=== PATIENT | female | born 1945 | race Caucasian/White ===

== ENCOUNTER 2016-07-25 12:42 | Inpatient (IN) | payer MEDICARE ==
[~2016-07-25] VITALS: Ht 157.5 cm; Wt 100.0 kg
[2016-07-25] VITALS (8 sets, daily range): BP systolic 104–129; BP diastolic 47–67; PULSE 98–114; RESP 16–24; O2SAT 89–99
[~2016-07-25 12:42] MED LIST: ALPRAZOLAM0.5 MG PO; AMOX500C2 PO; BIMA2.5D5 OU; CALCIUM; DICY10CA9 PO; DULO60CA42 PO; ESTR2TAB5 PO; HYDR-4003 PO; IPRA4AER IH; LEVO750T9 PO; LISI20TA PO; MTP50TCR PO; MULTIVITAMIN; OMPR20CCR PO; OXYGEN; PRO-AIR INH; RIVA20TA PO; SYMINH PO; TRAZ-146 PO; TUMS PO; VICODIN PO; [UNRECOGNIZED DRUG - CODE] PO; vit D3 PO
--- NOTE | 2016-07-25 13:00 | ED.REPORT ---
HPI-General Illness Date of Service July 25, 2016 ED Provider: Jac Oconnor MD The patient is a 71 year old female w/ a hx of HTN and COPD who presents to the ED accompanied by her due to dysuria onset 2 days ago. Associated symptoms include weakness, increased urinary frequency, fever, flank pain and back pain. She does not have any hx of kidney stones. She denies nausea, vomiting, diarrhea, and constipation. Nursing Notes Stated Complaint: FLANK PAIN Chief Complaint: Back Pain or Injury Nursing Notes Reviewed: Yes Allergies: Coded Allergies: clarithromycin (Verified Allergy, Severe, HIVES, 07/25/16) ceftriaxone (Verified Allergy, Intermediate, Rash, itching, hot flash, 07/25) codeine (Verified Adverse Reaction, Intermediate, Hallucinations, 07/25/16) makes patient confused oxycodone (Verified Adverse Reaction, Intermediate, CONFUSION, 07/25/16) prednisone (Verified Adverse Reaction, Intermediate, States is can cause a -fib, 07/25/16) Received doses on last admit Scheduled ([Vitamin D3 gummies]) 2 EACH PO QAM ([Vitamin C gummies]) 2 EACH PO QAM ([MV gummies]) 2 EACH PO QAM Bimatoprost (Lumigan) 45 Drop/2.5 Ml Ophsoln 1 DROP BOTH_EYES HS Bisoprolol Fumarate (Bisoprolol Fumarate) 5 Mg Tablet 2.5 MG PO QPM Budesonide/Formoterol 160-4.5 mcg Inh (Symbicort 160-4.5 mcg Inh) 120 Puff Inhaler 2 PUFFS INHALATION BID Dicyclomine (Dicyclomine) 10 Mg Capsule 10 MG PO QPM Duloxetine (Duloxetine) 60 Mg Capsule.dr 60 MG PO QPM Estradiol (Estradiol) 1 Mg Tablet 1 MG PO QAM Flecainide Acetate (Flecainide Acetate) 50 Mg Tablet 50 MG PO BID Hydrochlorothiazide (Hydrochlorothiazide) 12.5 Mg Capsule 12.5 MG PO QAM Omeprazole (Omeprazole) 40 Mg Capsule.dr 40 MG PO QAM Ranitidine (Ranitidine) 300 Mg Tablet 300 MG PO QPM Rivaroxaban (Xarelto) 20 Mg Tablet 20 MG PO QPM Timolol (Betimol) 5 Ml Drops 1 DROP RIGHT_EYE QAM Trazodone (Trazodone) 100 Mg Tablet 100 MG PO HS l Acidophil/B Lactis/B Longum (Florajen3 Capsule) 460 Mg Capsule 460 MG PO QAM Scheduled PRN Albuterol HFA (Proair HFA) 8.5 Gm Hfa.aer.ad 2 PUFFS INHALATION Q4H PRN PRN For Shortness of Breath Alprazolam (Alprazolam) 0.5 Mg Tablet 0.5 MG PO TID PRN PRN anx Hydrocodone-Acetaminophen 7.5-325 mg (Hydrocodone-Acetaminophen 7.5-325 mg) 1 Each Tablet 1 EACH PO QID PRN PRN For Pain Ipratropium/Albuterol Sulfate (Iprat-Albut 0.5-3(2.5) mg/3 mL Inhalant Soln) 3 Ml Ampul.neb 3 ML INHALATION QID PRN PRN For Shortness of Breath General Time Seen by MD: 12:56 Chief Complaint Other (dysuria) Hx Obtained From: Patient Arrived By: Walk-in Sudden in Onset?: Yes Onset Occurred: 2 days ago Symptom Duration: Since onset Recent Healthcare: No recent doctor visit, No recent hospitalization Similar Sx Previous: No Past Medical History Past Medical History 1. Severe COPD, requiring nocturnal O2. 2. Prior admissions for sepsis associated with community-acquired pneumonia (most recently January 11, 2013). 3. Hypertension. 4. Dyslipidemia. 5. Gastroesophageal reflux disease. 6. Irritable bowel syndrome. 7. Glaucoma. 8. Anxiety and depression. 9. Iron deficiency anemia. TSI 10, TIBC 322, 3% saturation, ferritin 65, B12 1469 (03/13/2013). Venofer 300 mg IV was given on 03/14/2013 and on 03/16/2013. The patient will need outpatient colonoscopy, and referral was make to Dr. Thompson for colonoscopy in the future 10. Atrial flutter with fast ventricular response. ECG (03/15/2013) confirmed atrial flutter with variable block. Several doses of Cardizem IV push were given; the patient continued to go in and out of atrial flutter. This resolved after initiation of Toprol XL 50 mg daily given at noon. Echocardiogram (03/16/2013) showed LVEF 65-70% without segmental wall motion. CHADS2 score is 1; no systemic anticoagulation initiated this admission. 11. History of acute renal failure possible secondary to acute interstitial nephritis that required short term dialysis Past Surgical History Reports: Knee replacement Smoking History Former Smoker Social History Other Social History: Good social support, , Local resident Ambulatory Status Independent Review of Systems Full Review of Systems Constitutional: Reports: Fever GI: Denies: Constipation, Diarrhea, Nausea, Vomiting Female: Reports: Dysuria, Urinary frequency Musculoskeletal: Reports: Back pain Complete sys rev & neg: except as marked. Physical Exam Vital Signs Vital Signs Date Time Temp Pulse Resp B/P Pulse Ox O2 Delivery O2 Flow Rate FiO2 07/25/16 13:53 110 24 104/50 95 Room Air 1.5 07/25/16 12:43 37.3 99 23 117/50 89 Room Air Initial VS: Reviewed Head / Eyes: Atraumatic, Normocephalic ENT: Mucous membranes moist Respiratory: Breath sounds normal, Clear to auscultation Back: No CVA tenderness Extremities: Vascular intact, Neuro intact, No swelling Neurologic: Alert Abdomen: No guarding, No rebound mild mid-abdominal tenderness Interpretation & Diagnostics Lab Results Interpretation Result Diagram: 07/26/16 0240 07/26/16 0240 Test 07/25/16 12:50 07/25/16 13:00 07/25/16 13:20 Hold Purple Top Tube Received (Received) Hold Blue Top Tube Received (Received) Phosphorus Level 3.2mg/dL (2.5-4.9) Magnesium Level 1.6mg/dL (1.6-2.6) Total Bilirubin 0.3mg/dL (0.0-1.2) Aspartate Amino Transf (AST/SGOT) 16U/L (0-50) Alanine Aminotransferase (ALT/SGPT) 9U/L (0-32) Alkaline Phosphatase 88U/L (25-165) Troponin T < 0.010ug/L (0.0-0.011) Total Protein 7.6g/dL (6.4-8.4) Albumin 3.9g/dL (3.4-5.0) Lipase 18U/L (13-60) Hold [place] Top Tube Received (Received) Hold Ortiz Top Tube Received (Received) Hold Urine Received (Received) Urine Color Straw (YELLOW) Urine Appearance Cloudy (CLEAR,HAZY) Urine pH 6.5 (5.0-8.0) Urine Specific Brandon 1.010 (1.003-1.035) Urine Protein 100mg/dL (NEG,TRACE) Urine Glucose (UA) Negativemg/dL (NEGATIVE) Urine Ketones Negativemg/dL (NEGATIVE) Urine Occult Blood Large (NEGATIVE) Urine Nitrite Negative (NEGATIVE) Urine Bilirubin Negative (NEGATIVE) Urine Urobilinogen Normalmg/dL (NORMAL) Urine Leukocyte Esterase Large (NEGATIVE) Urine RBC 11-50/hpf (0-2) Urine WBC >50/hpf (0-5) Urine Epithelial Cells Occasional/hpf (NONE-MOD) Urine Crystals None seen (NONE SEEN) Urine Bacteria Moderate/hpf (NONE-FEW) Urine Hyaline Casts None/lpf (NONE) Urine Granular Casts None seen (NONE SEEN) Urine Waxy Casts None seen (NONE SEEN) Urine Red Blood Cell Casts None seen (NONE SEEN) Urine White Blood Cell Casts None seen (NONE SEEN) Urine Mucus None seen (None Seen) Urine Trichomonas None seen (NONE SEEN) Urine Yeast None (NONE SEEN) Urinalysis Comment None Urine Culture Reflexed Indicated ECG Interpretation Time: 13:41 Interpreted by: ED physician Rhythm / Conduction: Tachycardia (rate 102) ECG Interpretation: wide QRS tachycardia (rate 165) Time: 14:44 Interpreted by: ED physician ECG Interpretation: A-flutter 2 to 1 block rate 107 Time: 15:05 Interpreted by: ED physician Re-Eval/Medical Decision Med Decision/Clinical Course 71-year-old female history of COPD, paroxysmal atrial fibrillation presenting with dysuria and fevers for several days. Tachycardic sinus tachycardia 110s on arrival initially with low blood pressures maps 50s. Lactate is 3. White blood cell count is 18,000. Apparent urinary source. Patient admitted for urinary sepsis given Zosyn. As awaiting transfer to floor, patient with wide complex tachyarrhythmia asymptomatic. Atrial fibrillation with RVR. Confirmed with cardiology. Per cardiology request given adenosine 6 mg with recurrent heart rate in the low 100s with EKG showing atrial flutter. Patient stable at time of transfer to floor. Time of Eval: 14:15 Re-Evaluation/Progress Note: Pt rechecked. Informed of lab results, diagnosis of pylonephritis and sepsis, and need for admission. Pt understands and agrees with plan. All questions addressed. Time of Eval: 15:04 Re-Evaluation/Progress Note: Pt rechecked. A-fib with aberrency RVR. Pt is given 6mm adenosine per cardiology request. Heart rate slowed down to atrial fibrillation. Counseled Regarding: Diagnosis, Lab results, Need for admission Discharge & Departure Primary Impression: Pyelonephritis Additional Impressions: Sepsis Sepsis type: sepsis due to unspecified organism Qualified Code: A41.9 - Sepsis, unspecified organism Atrial fibrillation with RVR Disposition: ADMITTED TO HOSPITAL Discharge Condition All VS Reviewed: Yes Condition: Stable Referrals: [facility] Crit Care Except Billable Proc Time Spent: 30-74 minutes (60 minutes) Services Performed: Patient management by me, Time spent at bedside, Reviewing test results, Reviewing imaging, Discussing patient care, Documentation in record, Time with fam/surrogate Scribe Attestation Portion of this note were transcribed by Nena Gallegos. I, Dr. Oconnor, personally performed the history, physical exam, and medical decision-making: I reviewed and confirmed the accuracy for the information in the transcribed note. Signed by: bayron Culver, 07/25/16 1500 copies to: [facility] Jac Oconnor MD July 25, 2016 13:00 Nena Gallegos July 25, 2016 13:16 None seen (NONE SEEN) Urine Red Blood Cell Casts None seen (NONE SEEN) Urine White Blood Cell Casts None seen (NONE SEEN) Urine Mucus None seen (None Seen) Urine Trichomonas None seen (NONE SEEN) Urine Yeast None (NONE SEEN) Urinalysis Comment None Urine Culture Reflexed Indicated ECG Interpretation Time: 13:41 Interpreted by: ED physician Rhythm / Conduction: Tachycardia (rate 102) ECG Interpretation: wide QRS tachycardia (rate 165) Time: 14:44 Interpreted by: ED physician ECG Interpretation: A-flutter 2 to 1 block rate 107 Time: 15:05 Interpreted by: ED physician Re-Eval/Medical Decision Med Decision/Clinical Course 71-year-old female history of COPD, paroxysmal atrial fibrillation presenting with dysuria and fevers for several days. Tachycardic sinus tachycardia 110s on arrival initially with low blood pressures maps 50s. Lactate is 3. White blood cell count is 18,000. Apparent urinary source. Patient admitted for urinary sepsis given Zosyn. As awaiting transfer to floor, patient with wide complex tachyarrhythmia asymptomatic. Atrial fibrillation with RVR. Confirmed with cardiology. Per cardiology request given adenosine 6 mg with recurrent heart rate in the low 100s with EKG showing atrial flutter. Time of Eval: 14:15 Re-Evaluation/Progress Note: Pt rechecked. Informed of lab results, diagnosis of pylonephritis and sepsis, and need for admission. Pt understands and agrees with plan. All questions addressed. Time of Eval: 15:04 Re-Evaluation/Progress Note: Pt rechecked. A-fib with aberrency RVR. Pt is given 6mm adenosine per cardiology request. Heart rate slowed down to atrial fibrillation. Counseled Regarding: Diagnosis, Lab results, Need for admission Discharge & Departure Primary Impression: Pyelonephritis Additional Impressions: Sepsis Sepsis type: sepsis due to unspecified organism Qualified Code: A41.9 - Sepsis, unspecified organism Atrial fibrillation with RVR Disposition: ADMITTED TO HOSPITAL Discharge Condition All VS Reviewed: Yes Condition: Stable Referrals: [facility] Crit Care Except Billable Proc Time Spent: 30-74 minutes (60 minutes) Services Performed: Patient management by me, Time spent at bedside, Reviewing test results, Reviewing imaging, Discussing patient care, Documentation in record, Time with fam/surrogate Scribe Attestation Portion of this note were transcribed by Nena Gallegos. I, Dr. Oconnor, personally performed the history, physical exam, and medical decision-making: I reviewed and confirmed the accuracy for the information in the transcribed note. Signed by: bayron Culver, 07/25/16 1500 copies to: [facility] Jac Oconnor MD July 25, 2016 13:00 Nena Gallegos July 25, 2016 13:16
[2016-07-25] MEDS ORDERED: 0.9% Sodium Chloride 500 ML IV ONE (13:15)
[2016-07-25] MEDS ORDERED: Ondansetron 2 mg/mL 2 mL Inj IVPUSH PRN ×3 (13:15→14:15)
[2016-07-25 13:25] LABS: NEUTROPHILS % (AUTO) 94.4 % (40-74); Platelet Count 368 bil/L (150-400)
[2016-07-25 13:28] LABS: BASOPHILS % (AUTO) 0.2 % (0-3); EOSINOPHILS % (AUTO) 0.5 % (0-5); MONOCYTES % (AUTO) 2.8 % (4-12); Mean Corpuscular Hemoglobin 21.6 pg (27.0-35.0)
[2016-07-25 13:40] LABS: APPEARANCE,URINE CLOUDY (CLEAR,HAZY); COLOR,URINE STRAW (YELLOW)
[2016-07-25 13:41] LABS: OCCULT BLOOD,URINE LARGE (NEGATIVE); PH,URINE 6.5 (5.0-8.0); UROBILINOGEN,URINE NORMAL (NORMAL)
[2016-07-25 13:47] LABS: Magnesium 1.5 mg/dL (1.6-2.6)
[2016-07-25] MEDS ORDERED: Piperacillin-Tazo 3.375 Gm Inj 3.375 GM in Dextrose 5% Minibag Plus 50 ML IV ONE (14:00)
[2016-07-25] MEDS ORDERED: 0.9% Sodium Chloride 1,000 ML IV SCH (14:11)
[2016-07-25] MEDS ORDERED: Alum-Mag Hydrox-Simeth 30 mL Suspension PO PRN ×2 (14:15)
[2016-07-25] MEDS ORDERED: Polyethylene Glycol (PEG) 17 Gm Powder PO PRN (14:15)
[2016-07-25] MEDS ORDERED: RIVA20TA PO (14:22)
[2016-07-25] MEDS ORDERED: ESTR1TAB24 PO (14:22)
[2016-07-25] MEDS ORDERED: SYMINH INHALATION (14:22)
[2016-07-25] MEDS ORDERED: TIMO5DRO26 RIGHT_EYE (14:22)
[2016-07-25] MEDS ORDERED: HYDR12.5 PO (14:22)
[2016-07-25] MEDS ORDERED: IPRA3AMP INHALATION (14:22)
[2016-07-25] MEDS ORDERED: FLC50T PO (14:22)
[2016-07-25] MEDS ORDERED: OMEP40CA36 PO (14:22)
[2016-07-25] MEDS ORDERED: HYDR-3825 PO (14:22)
[2016-07-25] MEDS ORDERED: ALBU8.5H2 INHALATION (14:22)
[2016-07-25] MEDS ORDERED: BISO5TAB2 PO (14:22)
[2016-07-25] MEDS ORDERED: L AC460C PO (14:22)
[2016-07-25] MEDS ORDERED: BIMA2.5D5 BOTH_EYES (14:22)
[2016-07-25] MEDS ORDERED: DULO60CA61 PO (14:22)
[2016-07-25] MEDS ORDERED: TRAZ-118 PO (14:22)
[2016-07-25] MEDS ORDERED: RANI300T4 PO (14:22)
[2016-07-25] MEDS ORDERED: ALPR0.5T8 PO (14:22)
[2016-07-25] MEDS ORDERED: DICY10CA13 PO (14:22)
[2016-07-25] MEDS ORDERED: VITAMIN C GUMMIES PO (14:29)
[2016-07-25] MEDS ORDERED: VITAMIN D GUMMIES PO (14:29)
[2016-07-25] MEDS ORDERED: MULTIVITAMIN PO (14:29)
[2016-07-25] MEDS ORDERED: Adenosine 3 mg/mL 2 mL Inj ONE (14:53)
[2016-07-25 14:55] LABS: Magnesium 1.6 mg/dL (1.6-2.6); Phosphorus 3.2 mg/dL (2.5-4.9); TROPONIN T < 0.010 ug/L (0.0-0.011)
[2016-07-25] MEDS ORDERED: 0.9% Sodium Chloride 1,000 ML IV ONE (16:40)
--- NOTE | 2016-07-25 17:06 | PCM.HPMED ---
Subjective Date of Service July 25, 2016 Primary Provider: Admitting Physician: Kelby Jacobo MD Primary Care Physician: Other,Physician Attending Physician: Kelby Jcaobo MD Chief Complaint: Pain with urination History of Present Illness: Ashley Cruz is a 71 year old woman with past medical history of hypertension, COPD, A fib on Xarelto, anxiety and depression who presented to the [facility] ED via EMS due to severe dysuria for one week. The patient noticed that she had issues with urination but it the suprapubic pain become even more severe today to a 10/ 10. She also noted back pain as well on the right. She denies any fevers but did note chills today as well as weakness. She states her urine looked "murky" and had some blood in it at first. She denies any kidney stones. She denies any nausea, vomiting, diarrhea, or constipation. She denies any LOC. While in the ED the patient's rhythm converted from atrial fibrillation to atrial fibrillation with aberrancy. Cardiology was contacted and recommended cardioversion with adenosine. This was done successfully and brought the patient back into atrial fibrillation. The patient was asymptomatic during this time and had stable blood pressure. She was given 1 L of NS in the ED and given one dose of Zosyn. Review of Systems: A comprehensive review of systems was conducted with the patient and found to be negative except as above in the History of Present Illness. Allergies Coded Allergies: clarithromycin (Verified Allergy, Severe, HIVES, 07/25/16) ceftriaxone (Verified Allergy, Intermediate, Rash, itching, hot flash, 07/25) codeine (Verified Adverse Reaction, Intermediate, Hallucinations, 07/25/16) makes patient confused oxycodone (Verified Adverse Reaction, Intermediate, CONFUSION, 07/25/16) prednisone (Verified Adverse Reaction, Intermediate, States is can cause a -fib, 07/25/16) Received doses on last admit Home Medications ([Vitamin D3 gummies]) 2 EACH PO QAM ([Vitamin C gummies]) 2 EACH PO QAM ([MV gummies]) 2 EACH PO QAM Bimatoprost (Lumigan) 45 Drop/2.5 Ml Ophsoln 1 DROP BOTH_EYES HS Bisoprolol Fumarate (Bisoprolol Fumarate) 5 Mg Tablet 2.5 MG PO QPM Budesonide/Formoterol 160-4.5 mcg Inh (Symbicort 160-4.5 mcg Inh) 120 Puff Inhaler 2 PUFFS INHALATION BID Dicyclomine (Dicyclomine) 10 Mg Capsule 10 MG PO QPM Duloxetine (Duloxetine) 60 Mg Capsule.dr 60 MG PO QPM Estradiol (Estradiol) 1 Mg Tablet 1 MG PO QAM Flecainide Acetate (Flecainide Acetate) 50 Mg Tablet 50 MG PO BID Hydrochlorothiazide (Hydrochlorothiazide) 12.5 Mg Capsule 12.5 MG PO QAM Omeprazole (Omeprazole) 40 Mg Capsule.dr 40 MG PO QAM Ranitidine (Ranitidine) 300 Mg Tablet 300 MG PO QPM Rivaroxaban (Xarelto) 20 Mg Tablet 20 MG PO QPM Timolol (Betimol) 5 Ml Drops 1 DROP RIGHT_EYE QAM Trazodone (Trazodone) 100 Mg Tablet 100 MG PO HS l Acidophil/B Lactis/B Longum (Florajen3 Capsule) 460 Mg Capsule 460 MG PO QAM Scheduled PRN Albuterol HFA (Proair HFA) 8.5 Gm Hfa.aer.ad 2 PUFFS INHALATION Q4H PRN PRN For Shortness of Breath Alprazolam (Alprazolam) 0.5 Mg Tablet 0.5 MG PO TID PRN PRN anx Hydrocodone-Acetaminophen 7.5-325 mg (Hydrocodone-Acetaminophen 7.5-325 mg) 1 Each Tablet 1 EACH PO QID PRN PRN For Pain Ipratropium/Albuterol Sulfate (Iprat-Albut 0.5-3(2.5) mg/3 mL Inhalant Soln) 3 Ml Ampul.neb 3 ML INHALATION QID PRN PRN For Shortness of Breath PMH 1. Severe COPD, requiring nocturnal O2. 2. Prior admissions for sepsis associated with community-acquired pneumonia ( most recently January 11, 2013). 3. Hypertension. 4. Dyslipidemia. 5. Gastroesophageal reflux disease. 6. Irritable bowel syndrome. 7. Glaucoma. 8. Anxiety and depression. 9. Iron deficiency anemia. 10. Atrial flutter with fast ventricular response status post ablation. 11. History of acute renal failure possible secondary to acute interstitial nephritis that required short term dialysis Surgical History Knee replacement Family History No family history of kidney stones. Social History Hx Alcohol Use: No Hx Substance Use: No Hx Tobacco Use: Yes (smoked since teenager but quit 2002) Smoking Status: Former Smoker Exam Vital Signs Vital Sign - Last Date Time Temp Pulse Resp B/P Pulse Ox O2 Delivery O2 Flow Rate FiO2 07/25/16 13:53 110 24 104/50 95 Room Air 1.5 07/25/16 12:43 37.3 Exam General: No acute distress, well-developed, well-nourished, appropriately interactive HEENT: Normocephalic, atraumatic. External ears without defect. Pupils equal, round, and reactive to light and accommodation. Anicteric sclerae, moist conjunctivae, and no lid lag. Oropharynx free of erythema and cobble stoning with moist mucosa. Neck: Supple with full range of motion. No jugular venous distension. No bruits. No lymphadenopathy or thyromegaly. Cardiovascular: Irregularly irregular with no murmurs, rubs, or gallops appreciated Pulmonary: Clear to auscultation bilaterally with no crackles, wheezes, or rhonchi. Normal respiratory effort with no use of accessory muscles. Abdomen: Bowel tones present. Soft, nontender, nondistended. No hepatosplenomegaly or masses appreciated. Obese. Extremities: No clubbing, cyanosis, edema, or lymphadenopathy appreciated. Skin: Normal temperature, turgor, and texture; no rash, ulcers, or subcutaneous nodules appreciated. Neurological: Cranial nerves grossly intact. Normal muscle strength, tone, and bulk. Reflexes, coordination, and sensory function within normal limits. No known gait impairment. Psychiatric: Somewhat anxious. Alert and oriented to person, place, and time. Lab and Diagnostics Result Diagram: 07/25/16 1250 07/25/16 1250 12-lead ECG Wide complex tachycardia, consistent with atrial tachycardia with aberrancy. Assessment & Plan Ashley Cruz is a 71 year old woman with past medical history of hypertension, COPD, A fib on Xarelto, anxiety and depression who presented to the [facility] ED via EMS due to severe dysuria for one week. Severe sepsis, secondary to pyelonephritis, evidenced by WBC 18.3, HR 110, with hyperlactatemia of 3.2 and procalcitonin of 0.86 -Trend lactate, already normalized. Give another L of NS over 4 hours. -Continue Zosyn Q8H Atrial fibrillation with RVR, transiently manifested as atrial tachycardia with aberrancy, s/p adenosine -Likely due to stress of sepsis -Continue home Flecainide, Bisoprolol and Xarelto -Cardizem PRN Anxiety and depression -Continue home medications, patient is very concerned about receiving these on time. COPD, without evidence of exacerbation -Continue home inhalers Chronic microcytic anemia -Continue to monitor Hypertension -Continue home medications Dyslipidemia -Continue home statin Gastroesophageal reflux disease -Continue home PPI Glaucoma -Continue home eye drops CODE STATUS: FULL CODE, although patient would not like to be intubated for a prolonged period of time. Patient is admitted under inpatient status with expected length of stay greater than 2 midnights due to severity of presenting symptoms, risk of adverse event, and complexity of treatment plan. Time spent 45 min Attending Statement Patient seen and examined with house staff. Agree with all attached documentation. Elena Contreras DO July 25, 2016 14:39 Kelby Jacobo MD July 26, 2016 14:23
[2016-07-25] MEDS: Pantoprazole 40 mg ER24 Tablet PO SCH (18:18)
[2016-07-25] MEDS: Sodium Chloride LOK Flush 10 mL Syringe IVFLUSH SCH (18:22)
--- NOTE | 2016-07-25 18:32 | NUR ---
Admit note Patient admitted to [facility] from [facility] ER via gurney. Patient a/o x 3, denies pain, nausea or sob. Patient amb in room with [facility]. Tele A fib 110-160's, patient asymptomatic. Lungs clear bilat. Patient oriented to call light, tv, phone, bathroom and poc.
[2016-07-25] MEDS ORDERED: Albuterol 2.5 mg/3 mL Inhalation Solution NEB PRN (20:00)
[2016-07-25] MEDS: DULoxetine 30 mg DR Capsule PO SCH (20:28)
[2016-07-25] MEDS: Fluticasone-Salmererol 250-50 Inhaler INHALATION SCH (20:54)
[2016-07-25] MEDS ORDERED: Mag Sulf 4 Gm/100 mL IV Premix (Mag < 1.6 & Creat < 2) IV ONE (23:30)
[2016-07-26] VITALS (10 sets, daily range): BP systolic 93–155; BP diastolic 52–66; PULSE 86–108; RESP 16–24; O2SAT 91–97
[2016-07-26] MEDS: Piperacillin-Tazo 3.375 Gm Inj 3.375 GM in Dextrose 5% Minibag Plus 50 ML IV SCH ×3 (00:23→17:02)
[2016-07-26] MEDS: Sodium Chloride LOK Flush 10 mL Syringe IVFLUSH SCH ×3 (00:30→16:30)
[2016-07-26] MEDS ORDERED: Piperacillin-Tazo 3.375 Gm Inj 3.375 GM in Dextrose 5% Minibag Plus 50 ML IV SCH (00:30)
[2016-07-26 02:56] LABS: BASOPHILS % (AUTO) 0.2 % (0-3); EOSINOPHILS % (AUTO) 0.6 % (0-5); MONOCYTES % (AUTO) 5.5 % (4-12); Mean Corpuscular Volume 77.7 fL (81-100); NEUTROPHILS % (AUTO) 85.2 % (40-74); Platelet Count 316 bil/L (150-400)
[2016-07-26] MEDS: Pantoprazole 40 mg ER24 Tablet PO SCH (05:38)
--- NOTE | 2016-07-26 05:56 | NUR ---
PAIN Pt c/o abdominal and back pain throughout the night. 2mg IV Morphine x3 and 650 mg Tylenol for pain. Pt ST in 100's, 1st degree block and PAC's. Pt on 2L NC for noc O2. No other issues noted at this time.
[2016-07-26] MEDS: Fluticasone-Salmererol 250-50 Inhaler INHALATION SCH ×2 (08:14→19:39)
[2016-07-26] MEDS: Timolol 0.5% 5 mL Ophthalmic Solution RIGHT_EYE SCH (08:16)
--- NOTE | 2016-07-26 08:31 | PCM.PNMED ---
Subjective Date of Service July 26, 2016 Subjective Ashley Cruz is a 71 year old woman with past medical history of hypertension, COPD, A fib on Xarelto, anxiety and depression who presented to the [facility] ED via EMS due to severe dysuria for one week. Now under treatment for sepsis and pyelonephritis. Hospital day #2. Overnight: No acute events. Today: The patient is feeling much better and would like to go home. She still has dysuria but it is has improved. She denies any nausea, vomiting, diarrhea, fevers, or chills. The remainder of ROS is negative except as noted above. Exam Vital Signs Vital Sign - Last Date Time Temp Pulse Resp B/P Pulse Ox O2 Delivery O2 Flow Rate FiO2 07/26/16 07:55 Supplement Oxygen 07/26/16 07:55 37.4 92 16 93/52 96 1.50 Intake and Output 07/25/16 07/25/16 07/26/16 Cumulative From/Thru 15:00 23:00 07:00 07/25/16 12:43 - 07/26/16 05:19 Intake Total 900 ml 1748 ml 2648 ml Output Total 1100 ml 1100 ml Balance 900 ml 648 ml 1548 ml Intake Oral 800 ml 800 ml IV Total 900 ml 948 ml 1848 ml Output Urine Total 1100 ml 1100 ml Exam General: No acute distress, well-developed, well-nourished, appropriately interactive HEENT: Normocephalic, atraumatic. External ears without defect. Pupils equal, round, and reactive to light and accommodation. Anicteric sclerae, moist conjunctivae, and no lid lag. Oropharynx free of erythema and cobble stoning with moist mucosa. Neck: Supple with full range of motion. No jugular venous distension. No bruits. No lymphadenopathy or thyromegaly. Cardiovascular: Irregularly irregular with no murmurs, rubs, or gallops appreciated Pulmonary: Clear to auscultation bilaterally with no crackles, wheezes, or rhonchi. Normal respiratory effort with no use of accessory muscles. Abdomen: Bowel tones present. Soft, nontender, nondistended. No hepatosplenomegaly or masses appreciated. Obese. Extremities: No clubbing, cyanosis, edema, or lymphadenopathy appreciated. Skin: Normal temperature, turgor, and texture; no rash, ulcers, or subcutaneous nodules appreciated. Neurological: Cranial nerves grossly intact. Normal muscle strength, tone, and bulk. Reflexes, coordination, and sensory function within normal limits. No known gait impairment. Psychiatric: Somewhat anxious. Alert and oriented to person, place, and time. IVs and Medications Medications Reviewed: Medications were reviewed in detail Lab and Diagnostics Result Diagram: 07/26/1623907/26/16239 12-lead ECG Wide complex tachycardia, consistent with atrial tachycardia with aberrancy. Assessment & Plan Ashley Cruz is a 71 year old woman with past medical history of hypertension, COPD, A fib on Xarelto, anxiety and depression who presented to the [facility] ED via EMS due to severe dysuria for one week. Now under treatment for sepsis and pyelonephritis. Hospital day #2. Severe sepsis, secondary to pyelonephritis, evidenced by WBC 18.3, HR 110, with hyperlactatemia of 3.2 and procalcitonin of 0.86 -Lactate normalized. Give 2 L total -Continue Zosyn Q8H -Procalcitonin worsened however the patient feels better clinically. Will continue with Zosyn for now, however if the patient changes course clinically will switch her to ertapenem. Atrial fibrillation with RVR, transiently manifested as atrial tachycardia with aberrancy, s/p adenosine, resolved. -Likely due to stress of sepsis -Continue home Flecainide, Bisoprolol and Xarelto -Cardizem PRN Anxiety and depression -Continue home medications, patient is very concerned about receiving these on time. COPD, without evidence of exacerbation -Continue home inhalers Chronic microcytic anemia -Continue to monitor Hypertension -Continue home medications Dyslipidemia -Continue home statin Gastroesophageal reflux disease -Continue home PPI Glaucoma -Continue home eye drops CODE STATUS: FULL CODE, although patient would not like to be intubated for a prolonged period of time. Dispo: Anticipate the patient will be in house for a few days. Attending Statement Patient seen and examined with house staff. Agree with all attached documentation. Elena Contreras DO July 26, 2016 08:31 Kelby Jacobo MD July 26, 2016 14:30
--- NOTE | 2016-07-26 09:24 | NUR ---
Social Work: Initial Assessment D: Per EMR review, pt is a 71 year old female admitted for pyelonephritis, sepsis. Pt is Medicare with [employer] supplement; pt has no LTC insurance or VA benefits. Pt does not have a PCP and declined a Residency Clinic Appointment from [facility]. NOK is Shadi Cruz, Spouse, . Advanced directives completed and on file. Readmit score is moderate, 4/8. [facility] met with pt at bedside. Sw role explained and contact info provided. See initial assessment. Pt lives in [facility] with her spouse in a single story home with 6 steps to enter. Pt uses no DME, continues to drive and is I with all ADLS. Pt has a history with [facility] but is not currently open for services. Pt has never had Skilled Rehab or Nursing. Pt states her spouse will transport her home when ready. Pt has been I during admission. A: Pt who is I at baseline. P: Anticipate pt to discharge home with no social work needs once medically stable; [facility] to continue to follow. LESLIE Covarrubias Addendum: 07/26/16 at 0927 by BARB MORALES Amended: Links added.
[2016-07-26] MEDS: ALPRAZolam 0.5 mg Tablet PO PRN (12:55)
[2016-07-26] MEDS: HYDROcodone-APAP 7.5-325 mg Tablet PO PRN ×2 (14:26→19:41)
--- NOTE | 2016-07-26 15:39 | NUR ---
pain/anxiety pt reported moderate anxiety prn xanax given moderate effectiveness. pt reported return of right flank pain and headache. pt requested MD be notified of pain return. prn norco given for pain. pt resting quietly upon follow up. will continue to monitor.
[2016-07-26] MEDS: DULoxetine 30 mg DR Capsule PO SCH (19:40)
[2016-07-26] MEDS: Diltiazem 5 mg/mL 5 mL Inj IVPUSH PRN ×2 (20:12→23:54)
--- NOTE | 2016-07-26 21:35 | NUR ---
HR/ANXIETY Pt's HR up in the 180's sustained with minimal exertion. Pt became lightheaded and anxious. Pt received PRN 5mg Cardizem IV push, HR currently steady in the 100's. Pt also received 1 tab [place] 7.5/325mg and 0.5mg Xanax for abd/back pain and anxiety. Addendum: 07/27/16 at 0019 by JAIRO MARTIN RN HR up in the 170's sustained again with minimal exertion, up from bed to standing position. Pt given 5 mg Cardizem IV push, HR steady high 90's. Addendum: 07/27/16 at 0506 by JAIRO MARTIN RN Anxiety Pt anxious this AM around 0430, received 0.5mg Xanax and discussed her concerns r/t her current ekaterina situation. Pt appeared more at ease after conversation and anxiety medication.
[2016-07-27] VITALS (8 sets, daily range): BP systolic 116–155; BP diastolic 53–68; PULSE 81–105; RESP 18–20; O2SAT 93–98
[2016-07-27] MEDS: Piperacillin-Tazo 3.375 Gm Inj 3.375 GM in Dextrose 5% Minibag Plus 50 ML IV SCH ×3 (00:24→15:49)
[2016-07-27] MEDS: Sodium Chloride LOK Flush 10 mL Syringe IVFLUSH SCH ×4 (00:24→21:33)
[2016-07-27] MEDS: ALPRAZolam 0.5 mg Tablet PO PRN ×2 (04:28→13:40)
[2016-07-27] MEDS: Pantoprazole 40 mg ER24 Tablet PO SCH (04:30)
[2016-07-27] MEDS: HYDROcodone-APAP 7.5-325 mg Tablet PO PRN ×2 (05:52→18:53)
[2016-07-27 08:05] LABS: BASOPHILS % (AUTO) 0.3 % (0-3); EOSINOPHILS % (AUTO) 1.8 % (0-5); MONOCYTES % (AUTO) 9.5 % (4-12); Mean Corpuscular Hemoglobin 22.1 pg (27.0-35.0); Mean Corpuscular Volume 77.9 fL (81-100); Platelet Count 272 bil/L (150-400)
[2016-07-27] MEDS: Albuterol-Ipratropium 3 mL Inhalation Solution INHALATION PRN (08:33)
[2016-07-27] MEDS: Timolol 0.5% 5 mL Ophthalmic Solution RIGHT_EYE SCH (08:34)
[2016-07-27] MEDS: Fluticasone-Salmererol 250-50 Inhaler INHALATION SCH ×2 (08:34→20:04)
--- NOTE | 2016-07-27 09:28 | PCM.PNMED ---
Subjective Date of Service July 27, 2016 Subjective Ashley Cruz is a 71 year old woman with past medical history of hypertension, COPD, A fib on Xarelto, anxiety and depression who presented to the [facility] ED via EMS due to severe dysuria for one week. Now under treatment for sepsis and pyelonephritis. Hospital day #3. Overnight: Patient had an episode of anxiety and had two episodes of A fib with RVR that were controlled with two PRN doses of IV diltiazem. Today: The patient states she is feeling well and states her dysuria has resolved completed. She still has some back pain but this has improved since yesterday. She denies any nausea, vomiting, diarrhea, fevers, or chills. The remainder of ROS is negative except as noted above. Exam Vital Signs Vital Sign - Last Date Time Temp Pulse Resp B/P Pulse Ox O2 Delivery O2 Flow Rate FiO2 07/27/16 08:19 Supplement Oxygen 07/27/16 08:11 36.8 95 20 136/63 94 2.00 Intake and Output 07/26/16 07/26/16 07/27/16 Cumulative From/Thru 15:00 23:00 07:00 07/25/16 12:43 - 07/27/16 05:54 Intake Total 503 ml 470 ml 3621 ml Output Total 1000 ml 2000 ml 4100 ml Balance -497 ml -1530 ml -479 ml Intake Oral 400 ml 400 ml 1600 ml IV Total 103 ml 70 ml 2021 ml Output Urine Total 1000 ml 2000 ml 4100 ml # Voids 3 3 # Bowel Movements 0 0 Exam General: No acute distress, well-developed, well-nourished, appropriately interactive HEENT: Normocephalic, atraumatic. External ears without defect. Pupils equal, round, and reactive to light and accommodation. Anicteric sclerae, moist conjunctivae, and no lid lag. Oropharynx free of erythema and cobble stoning with moist mucosa. Neck: Supple with full range of motion. No jugular venous distension. No bruits. No lymphadenopathy or thyromegaly. Cardiovascular: Irregularly irregular with no murmurs, rubs, or gallops appreciated Pulmonary: Clear to auscultation bilaterally with no crackles, wheezes, or rhonchi. Normal respiratory effort with no use of accessory muscles. Abdomen: Bowel tones present. Soft, nontender, nondistended. No hepatosplenomegaly or masses appreciated. Obese. Extremities: No clubbing, cyanosis, edema, or lymphadenopathy appreciated. Skin: Normal temperature, turgor, and texture; no rash, ulcers, or subcutaneous nodules appreciated. Neurological: Cranial nerves grossly intact. Normal muscle strength, tone, and bulk. Reflexes, coordination, and sensory function within normal limits. No known gait impairment. Psychiatric: Normal mood and affect. Pleasant. Alert and oriented to person, place, and time. IVs and Medications Medications Reviewed: Medications were reviewed in detail Lab and Diagnostics Result Diagram: 07/27/1674407/27/16744 12-lead ECG Wide complex tachycardia, consistent with atrial tachycardia with aberrancy. Assessment & Plan Ashley Cruz is a 71 year old woman with past medical history of hypertension, COPD, A fib on Xarelto, anxiety and depression who presented to the [facility] ED via EMS due to severe dysuria for one week. Now under treatment for sepsis and pyelonephritis. Hospital day #3. Pyelonephritis -Micro showing E. Coli, sensitivities to follow -Will continue Zosyn for now, likely transition to PO antibiotics tomorrow and D /C home. Severe sepsis, secondary to pyelonephritis, evidenced by WBC 18.3, HR 110, with hyperlactatemia of 3.2 and procalcitonin of 0.86. Resolved. -Lactate normalized. Give 2 L total -Continue Zosyn Q8H -Procalcitonin worsened however the patient feels better clinically. Atrial fibrillation with RVR, transiently manifested as atrial tachycardia with aberrancy, s/p adenosine, resolved. -Likely due to stress of sepsis -Continue home Flecainide, Bisoprolol and Xarelto -Cardizem PRN Anxiety and depression -Continue home medications, patient is very concerned about receiving these on time. COPD, without evidence of exacerbation -Continue home inhalers Chronic microcytic anemia -Continue to monitor Hypertension -Continue home medications Dyslipidemia -Continue home statin Gastroesophageal reflux disease -Continue home PPI Glaucoma -Continue home eye drops CODE STATUS: FULL CODE, although patient would not like to be intubated for a prolonged period of time. Dispo: Anticipate D/C home tomorrow. Attending Statement Patient seen and examined with house staff. Agree with all attached documentation. Elena Contreras DO July 27, 2016 09:17 Kelby Jacobo MD July 31, 2016 09:04
--- NOTE | 2016-07-27 15:33 | NUR ---
HR/Anxiety/Resp pt reported increased anxiety this afternoon, pt anxious and concerned about temporary dental work dislodging. PRN xanax given per md order with mild to moderate effectiveness. pt encouraged to phone dentist for instructions. pt stated appointment with dentist after discharge from hospital. Pt encourage to order soft foods. noted increase SOB upon returning to bed after walking to bathroom. Pt with 2L o2, sating hi80s, recovered to mid 90s after a few minutes. pt hr increasing to low 100s with walking. will continue to monitor.
[2016-07-27] MEDS: DULoxetine 30 mg DR Capsule PO SCH (20:01)
[2016-07-27] MEDS: Diltiazem 5 mg/mL 5 mL Inj IVPUSH PRN (20:05)
[2016-07-28] VITALS (11 sets, daily range): BP systolic 118–130; BP diastolic 63–76; PULSE 67–115; RESP 18–24; O2SAT 92–100
[2016-07-28] MEDS: Piperacillin-Tazo 3.375 Gm Inj 3.375 GM in Dextrose 5% Minibag Plus 50 ML IV SCH ×3 (01:21→16:33)
[2016-07-28] MEDS: Pantoprazole 40 mg ER24 Tablet PO SCH (06:25)
[2016-07-28 08:53] LABS: BASOPHILS % (AUTO) 0.5 % (0-3); EOSINOPHILS % (AUTO) 2.3 % (0-5); Mean Corpuscular Volume 77.2 fL (81-100); NEUTROPHILS % (AUTO) 76.5 % (40-74); Platelet Count 271 bil/L (150-400)
--- NOTE | 2016-07-28 09:03 | NUR ---
[facility] signed
[2016-07-28] MEDS: Fluticasone-Salmererol 250-50 Inhaler INHALATION SCH ×2 (09:05→21:17)
[2016-07-28] MEDS: ALPRAZolam 0.5 mg Tablet PO PRN ×3 (09:06→21:17)
[2016-07-28] MEDS: Sodium Chloride LOK Flush 10 mL Syringe IVFLUSH SCH ×2 (09:06→16:33)
[2016-07-28] MEDS: Timolol 0.5% 5 mL Ophthalmic Solution RIGHT_EYE SCH (09:07)
[2016-07-28] MEDS: HYDROcodone-APAP 7.5-325 mg Tablet PO PRN ×2 (09:07→16:31)
--- NOTE | 2016-07-28 11:20 | NUR ---
Multidisciplinary Communication 0749 - Coil Wrapper called to ask this nurse to come in and take a look at her telemetry. She had about 2-3 short bursts of Supraventricular Tachycardia (SVT) throughout the night. Per shiftman report she had received an IV push of Diltiazem during one of the episodes which helped. 929 - Notified Dr. Navarro and Dr. Contreras during morning multidisciplinary rounds that she had a couple of runs of SVT during the night and that she still gets significantly short of breath with activity. No new orders. They said they would probably do some scans today and discharge her tomorrow. Care continues. Addendum: 07/28/16 at 1718 by ENRIQUE HERNANDEZ RN 1129 - Noted a routine retroperitoneal ultrasound was ordered. Called the Nursing Supervisor [employer], April Lira, and left a message on her [employer] saying that an ultrasound had been ordered and the Doctors wanted it completed today if possible. She called right back at 1132 and said that an technical photographer is here on the weekends now and that she will come. 1520 - The ultrasound had not been completed yet and so this nurse called ultrasound over [employer] and left a message as there was no answer and also left a message for April Lira 1600 - Neither one replied and so tried calling the ultrasound department, but there was no answer. Called the nursing office and got a hold of April Lira, who said she did not receive this nurse's message. Said she would try and track the technical photographer down. 1630 - April Lira, came by to say that she was able to contact the tech and that she was finishing up documentation from a stat ultrasound and would be coming to do this patient's ultrasound shortly. 1647 - The technical photographer arrived and began her scan. 1657 - Called Lukasz from the pharmacy a few minutes before inquiring about some missing medications including Bisoprolol Fumarate 2.5 mg. He called back and said that the medication they had in their pharmacy was and because it was the weekend they wouldn't be able to get it in till Saturday. He asked if this nurse would like him to contact the Doctor for a possible substitute order. Told him that this nurse would try and let the Doctor know. Paged the Yellow team at 1702. Dr. Navarro stopped by at 1705 and said that he is fine holding the medication until her likely discharge tomorrow. He declined ordering a substitute for now as her blood pressures have been stable (see vitals record in EMR). Care continues.
[2016-07-28] MEDS: Albuterol-Ipratropium 3 mL Inhalation Solution INHALATION PRN (14:57)
[2016-07-28] MEDS: DULoxetine 30 mg DR Capsule PO SCH (16:31)
--- NOTE | 2016-07-28 16:47 | PCM.PNMED ---
Subjective Date of Service July 28, 2016 Subjective Ashley Cruz is a 71 year old woman with past medical history of hypertension, COPD, A fib on Xarelto, anxiety and depression who presented to the [facility] ED via EMS due to severe dysuria for one week. Now under treatment for sepsis and pyelonephritis. Hospital day #4. Overnight: No acute events were noted. Today: Today she is feeling well. She denies any dysuria, fevers, chills, nausea. Ashley did lose her temporary bottom dentures and is unable to eat; she has an appointment with the dentist on Saturday. Ashley is complaining of back pain as well as shoulder pain which she attributes to her arthritis and the uncomfortable hospital bed. The remainder of ROS is negative except as noted above. Exam Vital Signs Vital Sign - Last Date Time Temp Pulse Resp B/P Pulse Ox O2 Delivery O2 Flow Rate FiO2 07/28/16 12:34 36.6 89 21 118/63 98 Nasal Cannula 2.00 Intake and Output 07/27/16 07/27/16 07/28/16 Cumulative From/Thru 15:00 23:00 07:00 07/25/16 12:43 - 07/28/16 06:34 Intake Total 516 ml 450 ml 4587 ml Output Total 1800 ml 500 ml 6400 ml Balance -1284 ml -50 ml -1813 ml Intake Oral 436 ml 400 ml 2436 ml IV Total 80 ml 50 ml 2151 ml Output Urine Total 1800 ml 500 ml 6400 ml # Voids 0 1 4 # Bowel Movements 0 Exam General: No acute distress, well-developed, well-nourished, appropriately interactive HEENT: Normocephalic, atraumatic. External ears without defect. Pupils equal, round, and reactive to light and accommodation. Anicteric sclerae, moist conjunctivae, and no lid lag. Oropharynx free of erythema and cobble stoning with moist mucosa. Missing bottom teeth. Neck: Supple with full range of motion. No jugular venous distension. No bruits. No lymphadenopathy or thyromegaly. Cardiovascular: Irregular with no murmurs, rubs, or gallops appreciated. Pulse is irregularly irregular. Pulmonary: Clear to auscultation bilaterally with no crackles, wheezes, or rhonchi. Normal respiratory effort with no use of accessory muscles. Abdomen: Bowel tones present. Soft, obese, nontender, nondistended. No hepatosplenomegaly or masses appreciated. Extremities: No clubbing, cyanosis, edema, or lymphadenopathy appreciated. Skin: Normal temperature, turgor, and texture; no rash, ulcers, or subcutaneous nodules appreciated. Neurological: Cranial nerves grossly intact. Normal muscle strength, tone, and bulk. Reflexes, coordination, and sensory function within normal limits. No known gait impairment. Psychiatric: Normal mood and affect. Pleasant. Alert and oriented to person, place, and time. IVs and Medications Medications Reviewed: Medications were reviewed in detail Lab and Diagnostics Result Diagram: 07/28/1682407/28/16824 Microbiology OPAL CULT URINE Final 07/27/16 Organism 1 ESCHERICHIA COLI U COLONY COUNT/QUANTITY >100,000 CFU/ml Cefazolin-predicts results for the oral agents, cefaclor,cefdinir, cefpodoximen, cefprozil, cefuroximne axetil, cephalexin and loracarbed when used for therapy of uncomplicated UTI's due to E. coli, K. pneumoniae, and Proteus mirabilis. Cefpodoxime, cefdinir and cefuroxime axetil may be tested individually because some isolates may be susceptible to these agents while testing resistant to cefazolin. (CLSI Y291-W74 pg 53) 1. ESCHERICHIA COLI M.I.C Interp --------- ------ * AMOXICILLIN/CLAVULATE 4 S * AMPICILLIN >=32 R * CEFAZOLIN (CEPHALOSPORIN) UTI 4 S * CEFEPIME <=1 S * CEFTRIAXONE <=1 S * CEFUROXIME SODIUM 4 S * CIPROFLOXACIN >=4 R * ERTAPENEM <=0.5 S * GENTAMICIN <=1 S * IMIPENEM <=1 S * LEVOFLOXACIN >=8 R * NITROFURANTOIN <=16 S * TETRACYCLINE >=16 R * TOBRAMYCIN <=1 S * TRIMETHOPRIM/SULFAMETHOXAZOLE >=320 R 12-lead ECG Wide complex tachycardia, consistent with atrial tachycardia with aberrancy. Assessment & Plan Ashley Cruz is a 71 year old woman with past medical history of hypertension, COPD, A fib on Xarelto, anxiety and depression who presented to the [facility] ED via EMS due to severe dysuria for one week. Now under treatment for sepsis and pyelonephritis. Hospital day #3. 1. Pyelonephritis, present admission -Micro showing E. Coli -Her white count is still elevated which is concerning thus we will proceed with a retroperitoneal ultrasound to evaluate for possible abscesses, nephrolithiasis, or hydronephrosis. -Will continue Zosyn for now, antibiotic day 3. Due to the patient's confirmed allergy to cephalosporins which included a severe rash we will continue on with Zosyn for 1 more day and likely switch the patient to Augmentin tomorrow at which point she will likely be discharged home. 2. Severe sepsis, secondary to pyelonephritis, evidenced by WBC 18.3, HR 110, with hyperlactatemia of 3.2 and procalcitonin of 0.86. Resolved. -Lactate normalized. Give 2 L total -Continue Zosyn Q8H -Procalcitonin trending down appropriately. 3. Atrial fibrillation with RVR, transiently manifested as atrial tachycardia with aberrancy, s/p adenosine, resolved. -Likely due to stress of sepsis -Continue home Flecainide, Bisoprolol and Xarelto -Cardizem PRN 4. Anxiety and depression -Continue home medications, patient is very concerned about receiving these on time. 5. COPD, without evidence of exacerbation -Continue home inhalers 6. Chronic microcytic anemia -Continue to monitor 7. Hypertension -Continue home medications 8. Dyslipidemia -Continue home statin 9. Gastroesophageal reflux disease -Continue home PPI 10. Glaucoma -Continue home eye drops 11. Poor dentition -Patient lost her bottom dentures; she is scheduled to have a dentist appointment on Saturday. CODE STATUS: FULL CODE, although patient would not like to be intubated for a prolonged period of time. Dispo: Anticipate D/C home tomorrow. Pain Evaluation: Adequate Pain Control GI Prophylaxis: Proton Pump Inhibitor VTE Prophylaxis: Other (Patient is on Xarelto) Resuscitation Status: CPR: Attempt Resuscitation Attending Statement Patient was seen and evaluated with the resident taking care of the patient. I have reviewed the above note and agree with the above. Elena Contreras DO July 28, 2016 14:02 Jed Navarro MD July 28, 2016 18:18
--- NOTE | 2016-07-28 17:18 | NUR ---
Trouble Eating Her temporary cap for her bottom teeth fell out yesterday. As a result, she is unable to eat solid food. Giving her soft food options which she is accepting some and declining others. Said she has a dental appointment on Saturday to get her teeth fixed. Care continues.
--- NOTE | 2016-07-28 20:11 | DRSVH ---
PROCEDURE: US RETROPERITONEAL SONOGRAM ([id number]) INDICATIONS: ? stones TECHNIQUE: Real-time scanning was performed of the kidneys and bladder, with image documentation. COMPARISON: None. FINDINGS: Kidneys: Kidneys are normal in size. Right kidney measures 10.2 cm long; left kidney measures 10.5 cm long. Right renal cortical thickness is 1.2 cm; left renal cortical thickness is 1.0 cm. Renal c ortical echotexture is normal. No hydronephrosis or nephrolithiasis. No suspicious solid mass lesio ns. There is a simple left renal cyst which measures 1.8 cm in diameter. Bladder: Pre-void bladder volume is 278 mL. Post-void residual is zero mL. Pre-void images demonst rate no intraluminal masses or stones. On pre-void images, neither ureteral jets are noted with colo r Doppler interrogation. (Of note, ureteral jets may not be detectable in up to 25% of cases due to insufficient differences in specific gravity between ureteral and bladder urine). Miscellaneous: No free pelvic fluid. IMPRESSION: 1. No nephrolithiasis or hydronephrosis. 2. No postvoid residual. Dictated by: Patt Batista M.D. on 07/28/2016 at 20:08 Approved by: Patt Batista M.D. on 07/28/2016 at 20:09
[2016-07-29] VITALS (15 sets, daily range): BP systolic 110–149; BP diastolic 53–72; PULSE 76–103; RESP 16–24; O2SAT 95–98
[2016-07-29] MEDS: Piperacillin-Tazo 3.375 Gm Inj 3.375 GM in Dextrose 5% Minibag Plus 50 ML IV SCH ×3 (00:06→16:30)
[2016-07-29] MEDS: Sodium Chloride LOK Flush 10 mL Syringe IVFLUSH SCH ×3 (00:06→16:30)
--- NOTE | 2016-07-29 05:13 | NUR ---
Febrile / Tele / O2 Mildly Febrile with temp 37.4 C. Medicated with PO Tylenol and temp reduced to 36.7 C., and remained afebrile for the rest of the night. No c/o chest pain, Tele SR in the 80-90s per Radiopharmacist. Denies SOB at rest, O2 @ 2.5L sats 97%. Increased dyspnea with activity, and is slow to recover.
[2016-07-29] MEDS: Pantoprazole 40 mg ER24 Tablet PO SCH (06:30)
[2016-07-29] MEDS: Fluticasone-Salmererol 250-50 Inhaler INHALATION SCH ×2 (08:42→20:42)
[2016-07-29] MEDS: Timolol 0.5% 5 mL Ophthalmic Solution RIGHT_EYE SCH (08:43)
[2016-07-29] MEDS: HYDROcodone-APAP 7.5-325 mg Tablet PO PRN ×2 (08:44→20:48)
[2016-07-29] MEDS: ALPRAZolam 0.5 mg Tablet PO PRN ×2 (08:45→20:43)
[2016-07-29 10:01] LABS: BASOPHILS % (AUTO) 0.6 % (0-3); EOSINOPHILS % (AUTO) 3.3 % (0-5); MONOCYTES % (AUTO) 10.8 % (4-12); Mean Corpuscular Hemoglobin 21.9 pg (27.0-35.0); Mean Corpuscular Volume 77.8 fL (81-100); NEUTROPHILS % (AUTO) 72.8 % (40-74); Platelet Count 281 bil/L (150-400)
--- NOTE | 2016-07-29 11:44 | DRSVH ---
PROCEDURE: X-RAY CHEST ONE VIEW, PORTABLE ([id number]) INDICATIONS: Shortness of breath TECHNIQUE: One view of the chest was acquired. COMPARISON: None. FINDINGS: Surgical changes and devices: None. Lungs and pleura: No pleural effusions or pneumothorax. Mild patchy opacity within the right mid and lower lung is present, new since the prior examination. Mediastinum: Mediastinal contours appear normal. Heart size is normal. Bones and chest wall: No suspicious bony lesions. Overlying soft tissues appear unremarkable. IMPRESSION: Right lung pneumonia. Follow up plain films of the chest are recommended to ensure resolu tion, and to exclude underlying or central malignancy. Dictated by: Lauri Chamberlain M.D. on 07/29/2016 at 11:42 Approved by: Lauri Chamberlain M.D. on 07/29/2016 at 11:42
[2016-07-29] MEDS ORDERED: Potassium Chloride 20 mEq SR Tablet PO ONE (11:50)
[2016-07-29] MEDS ORDERED: Furosemide 10 mg/mL 2 mL Inj IV ONE ×2 (12:20)
--- NOTE | 2016-07-29 12:24 | NUR ---
Social Work Note: Readiness for Discharge Data& Assessment: Per MD in morning rounds, pt is getting closer to being medically ready for discharge. Per RN in morning rounds, pt is ambulating in her room but is very short of breath. SW met with pt and pt at bedside to discuss discharge planning. SW discussed home health PT at time of discharge for extra strengthening and and RN to check her vitals. Pt declined home health services and feels she is closer to her baseline. Pt is requiring 2L of oxygen, SW to follow for any respiratory needs at time of discharge. Pt and pt deny any other needs. No other discharge needs identified at this time. SW to continue to follow if any needs arise. Plan: Anticipated discharge home via POV when medically ready. Pt and pt deny any other needs. No other discharge needs identified at this time. SW to continue to follow if any needs arise. LESLIE Olivas
[2016-07-29] MEDS: Albuterol-Ipratropium 3 mL Inhalation Solution INHALATION PRN (12:25)
[2016-07-29 12:57] LABS: Unsaturated Iron Binding 292.5 ug/dL
[2016-07-29] MEDS ORDERED: 0.9% Sodium Chloride 250 ML ONE ×2 (15:35→20:00)
--- NOTE | 2016-07-29 18:12 | NUR ---
Ventricular Tachycardia, Blood Transfusion, Multidisciplinary Communication 0847 - Third Hand called to say that she had six beats of ventricular tachycardia. Was present in the room when he called and the patient denied having symptoms. At 0735 during telemetry checks she was sinus rhythm 80s-100s with a first degree block and PACs/PVCs. 0930 - Notified Dr. Navarro of the V-tach during morning multidisciplinary rounds and asked him if labs were going to be ordered as none had been drawn this morning. Had noted that over the last few days her H/H had been declining. He said he would order labs and acknowledged her V-tach. 1057 - The x-ray department called wanting to know how she transported as an x-ray had been ordered. Told them that she had significant shortness of breath with any movement and requested that a portable chest x-ray be completed instead which they agreed to. 1210 - Went in the room with Dr. Navarro while he talked to her and assessed her. He discussed her low H/H and potassium levels with the newly drawn labs and told her she needed a blood transfusion and oral potassium. She was disappointed with not being able to discharge today, but was in agreement with his plan of care and appreciated his thorough approach. He requested that she get a nebulizer treatment and Suzy the Respiratory Therapist was called to administer one. 1330 - Talked with the blood bank as they had tried to call shortly before. They said they were waiting on a tube from the fire tower keeper so that the type and cross could be completed and the blood prepared. 1511 - The blood bank called to say the blood was ready. 1550 - The blood was retrieved by Joanna jhaveri A[employer]ULT[employer] WORKER SUPERVISOR. It was noted that the blood consent form had not been signed yet. Paged Dr. Navarro regarding this. He came and signed it with her and this nurse signing as witness. This nurse discussed the potential side effects and adverse reactions to the transfusion. Requested that she call should she experience them or feel different in any way which she agreed to. 1617 - The first of two units of packed red blood cells (PRBCs) was started after having gotten a baseline set of vitals (see EMR record) and Soledad Miner RN double checked the unit. Her 15 minute vitals were stable. About 1700 - She put on her call light and was concerned that she was feeling so sleepy and "couldn't stay awake." She said she was breathing fine and was oriented x4. Vitals were still stable. Told her it did not appear she was having a reaction and that it was fine for her to close her eyes and sleep. Checked on her later and she was easily awakened. 1704 - Noted that she had a dose of Zosyn due, but that she only had one IV and the blood was currently running through it. Paged Dr. Navarro about this and he called back saying that the Zosyn could be postponed until the blood was complete. Non-administered the dose as by the time she is done with the two units of blood it will be time for her next Zosyn dose. Zaki from the pharmacy made aware. Care continues.
[2016-07-29] MEDS: DULoxetine 30 mg DR Capsule PO SCH (19:10)
[2016-07-29] MEDS ORDERED: Furosemide 10 mg/mL 2 mL Inj ONE (20:30)
--- NOTE | 2016-07-29 21:47 | PCM.PNMED ---
Subjective Date of Service July 29, 2016 Subjective The patient states she still feels quite ill. She continues to complain of severe shortness of breath with any exertion even going to the bathroom. This is much worse than at home. She no longer has fever or chills. He has no nausea or vomiting or diarrhea. She has no grossly bloody stools. Exam Vital Signs Vital Sign - Last Date Time Temp Pulse Resp B/P Pulse Ox O2 Delivery O2 Flow Rate FiO2 07/29/16 20:00 98 07/29/16 17:08 37.0 24 120/55 07/29/16 15:53 98 Nasal Cannula 3.00 Intake and Output 07/28/16 07/28/16 07/29/16 Cumulative From/Thru 15:00 23:00 07:00 07/25/16 12:43 - 07/29/16 06:06 Intake Total 1309 ml 506 ml 6402 ml Output Total 1900 ml 350 ml 8650 ml Balance -591 ml 156 ml -2248 ml Intake Oral 1200 ml 340 ml 3976 ml IV Total 109 ml 166 ml 2426 ml Output Urine Total 1900 ml 350 ml 8650 ml # Voids 0 4 # Bowel Movements 0 Exam General: Patient is in no apparent distress lying supine in bed with head elevated approximate 45. However, when patient gets up to the bathroom she experiences severe dyspnea on exertion. HEENT: Head is atraumatic and normocephalic. Eyes: Pupils are equally round and reactive to light and accommodation. Extraocular muscles are intact. Sclera are white, anicteric. Subconjunctival mucosa is pink. Ears and nose are unremarkable. Oropharynx: There is no mucosal lesions, there is no thrush, there is no pharyngitis. Neck: Is supple, there are no nodes, or masses or tenderness. Chest: Is significant for scattered bilateral wheezing. There is a few bibasilar rales right greater than left Heart: Rate, rhythm is regular. There is no new murmur, rub or gallop. Abdomen: Good bowel sounds are present. Abdomen is obese, soft, nontender, no organomegaly or masses were appreciated. Extremities: Are symmetrical and well perfused. There is minimal edema, there is no cellulitis, no rash. Neurologic: There are no focal neurological deficits. Cranial nerves II through XII are intact. There are no sensory or motor deficits. Psychiatric: Patients mood is calm and shows no sign of agitation. Genital: Deferred Rectal: Deferred Lab and Diagnostics Result Diagram: 07/29/1694407/29/16944 Microbiology OPAL CULT URINE Final 07/27/16-0836 Organism 1 ESCHERICHIA COLI U COLONY COUNT/QUANTITY >100,000 CFU/ml Cefazolin-predicts results for the oral agents, cefaclor,cefdinir, cefpodoximen, cefprozil, cefuroximne axetil, cephalexin and loracarbed when used for therapy of uncomplicated UTI's due to E. coli, K. pneumoniae, and Proteus mirabilis. Cefpodoxime, cefdinir and cefuroxime axetil may be tested individually because some isolates may be susceptible to these agents while testing resistant to cefazolin. (CLSI E501-B86 pg 53) 1. ESCHERICHIA COLI M.I.C Interp --------- ------ * AMOXICILLIN/CLAVULATE 4 S * AMPICILLIN >=32 R * CEFAZOLIN (CEPHALOSPORIN) UTI 4 S * CEFEPIME <=1 S * CEFTRIAXONE <=1 S * CEFUROXIME SODIUM 4 S * CIPROFLOXACIN >=4 R * ERTAPENEM <=0.5 S * GENTAMICIN <=1 S * IMIPENEM <=1 S * LEVOFLOXACIN >=8 R * NITROFURANTOIN <=16 S * TETRACYCLINE >=16 R * TOBRAMYCIN <=1 S * TRIMETHOPRIM/SULFAMETHOXAZOLE >=320 R 12-lead ECG Wide complex tachycardia, consistent with atrial tachycardia with aberrancy. Assessment & Plan Ashley Cruz is a 71 year old woman with past medical history of hypertension, COPD, A fib on Xarelto, anxiety and depression who presented to the [facility] ED via EMS due to severe dysuria for one week. Now under treatment for sepsis and pyelonephritis. Hospital day #3. 1. Pyelonephritis, present admission -Micro showing E. Coli -Her white count is still elevated which is concerning. However, no trending downward. -Will continue Zosyn for now, antibiotic day 4. Due to the patient's confirmed allergy to cephalosporins which included a severe rash we will continue on with Zosyn and likely switch the patient to Augmentin when she is discharged home. 2. Pneumonia likely present at the time of admission. Active and ongoing - Seen on today's chest x-ray. - Continue Zosyn - Patient's is concerned the patient often eats in a supine position in bed and is concerned that she may be aspirating. Therefore, will check modified barium swallow and consult speech therapy. 3. Severe sepsis, secondary to pyelonephritis and right lower lobe pneumonia as seen on today's chest x-ray, evidenced by WBC 18.3, HR 110, with hyperlactatemia of 3.2 and procalcitonin of 0.86. Resolved. -Lactate normalized. Give 2 L total -Continue Zosyn Q8H -Procalcitonin trending down appropriately. 4. Atrial fibrillation with RVR, transiently manifested as atrial tachycardia with aberrancy, s/p adenosine, resolved. -Likely due to stress of sepsis -Continue home Flecainide, Bisoprolol and Xarelto -Cardizem PRN 5. Anxiety and depression -Continue home medications, patient is very concerned about receiving these on time. 6. COPD, without evidence of exacerbation -Continue home inhalers 7. Progressive microcytic anemia -History due to iron deficiency anemia -However, her anemia seems to be affecting her clinical course and ability to function. She continues to be hypoxemic and experienced severe dyspnea on exertion. Her hemoglobin and hematocrit continue to drop. -We will check stool for occult blood if positive will consider GI consultation. -We will order 2 units of packed red blood cells to be transfused with Lasix 20 mg IV after each unit. This should help the with patient's COPD and improve her overall oxygenation and recovery time. -Patient will be put on iron supplementation 8. Hypertension -Continue home medications 9. Dyslipidemia -Continue home statin 10. Gastroesophageal reflux disease -Continue home PPI 11. Glaucoma -Continue home eye drops 12. Poor dentition -Patient lost her bottom dentures; she is scheduled to have a dentist appointment on Saturday. I have talked to the patient about this and she will reschedule for Saturday. CODE STATUS: FULL CODE, although patient would not like to be intubated for a prolonged period of time. Dispo: Anticipate D/C home tomorrow. Pain Evaluation: Adequate Pain Control GI Prophylaxis: Proton Pump Inhibitor VTE Prophylaxis: Other (Patient is on Xarelto) Resuscitation Status: CPR: Attempt Resuscitation RamonJed lynch MD July 29, 2016 21:47
[2016-07-30] VITALS (7 sets, daily range): BP systolic 118–140; BP diastolic 52–71; PULSE 78–89; RESP 16–20; O2SAT 96
[2016-07-30] MEDS: Piperacillin-Tazo 3.375 Gm Inj 3.375 GM in Dextrose 5% Minibag Plus 50 ML IV SCH ×2 (00:21→09:23)
[2016-07-30] MEDS: Sodium Chloride LOK Flush 10 mL Syringe IVFLUSH SCH ×2 (00:21→08:30)
[2016-07-30] MEDS: ALPRAZolam 0.5 mg Tablet PO PRN ×2 (01:06→09:28)
[2016-07-30 03:17] LABS: BASOPHILS % (AUTO) 0.4 % (0-3); EOSINOPHILS % (AUTO) 4.5 % (0-5); MONOCYTES % (AUTO) 13.7 % (4-12); Mean Corpuscular Hemoglobin 22.2 pg (27.0-35.0); Mean Corpuscular Volume 77.8 fL (81-100); NEUTROPHILS % (AUTO) 65.1 % (40-74); Platelet Count 274 bil/L (150-400)
[2016-07-30 03:57] LABS: Magnesium 1.8 mg/dL (1.6-2.6); Phosphorus 3.1 mg/dL (2.5-4.9)
[2016-07-30] MEDS: Pantoprazole 40 mg ER24 Tablet PO SCH (04:59)
[2016-07-30] MEDS: HYDROcodone-APAP 7.5-325 mg Tablet PO PRN (04:59)
[2016-07-30] MEDS ORDERED: Potassium Chloride 20 mEq SR Tablet PO ONE (05:30)
--- NOTE | 2016-07-30 06:17 | NUR ---
Blood / Tele / Respiratory /Pain Pt received 2 units PRBC's with 20mg IV Lasix administered after each unit infused. No transfusion reactions noted. No c/o chest pain, Tele SR in the 80-90s with occ PACs per Steam Pan Sponger. O2 @ 2L NC, sats 95-97%. Pt has increased dyspnea with activity, but recovers much better back to baseline after activity tonight. Pt has a rare, non-productive cough. Loose stools X2 during the night. Generalized pain controlled with Thompson with good affect.
[2016-07-30] MEDS: Timolol 0.5% 5 mL Ophthalmic Solution RIGHT_EYE SCH (08:35)
[2016-07-30] MEDS: Fluticasone-Salmererol 250-50 Inhaler INHALATION SCH (08:35)
[2016-07-30] MEDS: Albuterol-Ipratropium 3 mL Inhalation Solution INHALATION PRN (09:51)
--- NOTE | 2016-07-30 11:51 | NUR ---
MBS completed. No aspiration seen on evaluation. See full report for more details. Rec: Thin/Dys Mechanical with ground meats and extra gravy.
--- NOTE | 2016-07-30 11:59 | DRSVH ---
PROCEDURE: X-RAY BARIUM SWALLOW WITH FOOD & VIDEOGRAPHY ([id number]) INDICATIONS: Aspiration Pneumonia TECHNIQUE: Examination was conducted in conjunction with speech pathology per standard protocol. In the lateral projection, filming was performed of the patient swallowing. AP projection filming may also be performed with patient swallowing. COMPARISON: None. FINDINGS: Function: The oral preparatory phase appears normal, with proper containment. The subsequent oral pr opulsive phase, pharyngeal phase, and esophageal phase of swallowing also appear normal with all prof fered substances. No laryngotracheal penetration or aspiration. No pathologic vallecular pooling. The attending physician was personally present in the room during the examination. Morphology: No cricopharyngeal bar is identified. No cervical esophageal webs. No Zenker's diverti culum. No strictures. IMPRESSION: No laryngeal penetration or tracheobronchial aspiration. Dictated by: Mickey PADILLA Interpreted: Lauri Chamberlain MD on 07/30/2016 at 11:58 Transcribed by: MAYA on 07/30/2016 at 11:58 Approved by: Larui Chamberlain M.D. on 07/30/2016 at 12:10
--- NOTE | 2016-07-30 13:57 | PCM.DIMED ---
Discharge Instructions Date of Service July 30, 2016 Dates of Hospitalization July 25, 2016 at 14:34 Discharge Diagnosis Discharge Diagnosis Urinary tract infection with Escherichia coli Right lower lobe pneumonia Iron deficiency anemia Diet Heart Healthy Activity No restrictions (The patient may resume her usual activities gradually as tolerated.) Call your provider Fever or Chills, Shortness of breath, Bleeding, Chest pain, Vomitting, Excessive diarrhea, Weakness (unilateral) Patient Instructions Follow-up with PCP in: 1 week (Follow up with PCP next week) Jed Navarro MD July 30, 2016 13:57
[2016-07-30] MEDS ORDERED: AMOX-366 PO (14:00)
[2016-07-30] MEDS ORDERED: FEG324 PO (14:26)
--- NOTE | 2016-07-30 14:38 | NUR ---
Social Work Note - Discharge: D/A: The Pt is a 71 y/o female that was admitted on 07/25/16 for pyelonephritis, sepsis. The Pt is now medically stable for discharge. SW met with the Pt and family to discuss HH services, Pt and family declining HH services at this time. Pt and family denying any other needs at this time. P: Pt to discharge home today with family providing POV transportation. Pt and family denying any other needs at this time. LESLIE Branch Medical Records Administrator
[2016-07-30] MEDS ORDERED: BISOPROLOL PO SCH (17:30)
--- NOTE | 2016-07-30 18:04 | NUR ---
Barium Swallow, Discharge, Multidisciplinary Communication 0820 - Spoke to Pharmacist Deniz Mckinley about her IV Zosyn missing. He said he would get it sent up. 0840 - Leonard called to take report on her for her upcoming Barium swallow scheduled for 1100. 0930 - Discussed her care with Dr. Navarro, Dr. Contreras, and the rest of the care team during multidisciplinary rounds. It was anticipated that she would be able to discharge home today. 1100 - She left via wheelchair and transporter to get her Barium swallow completed. She returned to [facility] about 1140 and was settled back into bed. 1107 - Asked Dr. Contreras and Dr. Navarro if she could be taken off telemetry for a shower and Dr. Contreras said yes. 1310 - Noted that her Ferrous Gluconate had not arrived yet and that Dr. Navarro had wanted to her take it before discharging. Talked to Deniz about this and he said that he'd try to get it sent up as soon as possible. 1437 - Discussed her discharge with Dr. Navarro and noted that he had completed the discharge orders. The Ferrous Gluconate had still not arrived and so this nurse spoke to Deniz again. It was sent up shortly after and given. 1540 - She was discharged at this time and was wheeled down to the car and sent with an oxygen tank set at 3L for the car ride home (asked them to return the O2 tank at their convenience which they agreed to). She took all her belongings with her. Her IV and telemetry were discontinued intact. Discussed with and gave her the discharge paperwork (care notes and instructions). Prescriptions were sent electronically per Dr. Navarro. Answered her questions. She and her thanked staff for all of their excellent care.
--- NOTE | 2016-07-30 19:00 | PCM.DC.MED ---
Discharge Summary Date of Service July 30, 2016 Dates of Hospitalization Date of Hospital Admission July 25, 2016 at 14:34 Date of Discharge: July 30, 2016 Providers: Admitting Physician: Kelby Jacobo MD Primary Care Physician: Other,Physician Attending Physician: Kelby Jacobo MD Diagnosis at Time of Discharge Diagnosis at Time of Discharge Urinary tract infection with Escherichia coli Right lower lobe pneumonia Iron deficiency anemia Procedures ECG 12 Lead Wide complex tachycardia, consistent with atrial tachycardia with aberrancy. Brief History Ashley Cruz is a 71 year old woman with past medical history of hypertension, COPD, A fib on Xarelto, anxiety and depression who presented to the [facility] ED via EMS due to severe dysuria for one week. The patient noticed that she had issues with urination but it the suprapubic pain become even more severe today to a 10/ 10. She also noted back pain as well on the right. She denies any fevers but did note chills today as well as weakness. She states her urine looked "murky" and had some blood in it at first. She denies any kidney stones. She denies any nausea, vomiting, diarrhea, or constipation. She denies any LOC. While in the ED the patient's rhythm converted from atrial fibrillation to atrial fibrillation with aberrancy. Cardiology was contacted and recommended cardioversion with adenosine. This was done successfully and brought the patient back into atrial fibrillation. The patient was asymptomatic during this time and had stable blood pressure. She was given 1 L of NS in the ED and given one dose of Zosyn. Hospital Course Ashley Cruz is a 71 year old woman with past medical history of hypertension, COPD, A fib on Xarelto, anxiety and depression who presented to the [facility] ED via EMS due to severe dysuria for one week. Now under treatment for sepsis and pyelonephritis. Hospital day #3. 1. Pyelonephritis, present admission -Micro showing E. Coli -Zosyn 5 days. Due to the patient's confirmed allergy to cephalosporins which included a severe rash continued on with Zosyn -Augmentin on discharge 2. Pneumonia likely present at the time of admission. Active and ongoing - Seen on 07/29's chest x-ray. - Continued Zosyn - Patient's is concerned the patient often eats in a supine position in bed and is concerned that she may be aspirating. - Modified barium swallow was normal. 3. Severe sepsis, secondary to pyelonephritis and right lower lobe pneumonia as seen on today's chest x-ray, evidenced by WBC 18.3, HR 110, with hyperlactatemia of 3.2 and procalcitonin of 0.86. Resolved. -Lactate normalized. Give 2 L total -Continued Zosyn Q8H -Procalcitonin trended down appropriately. 4. Atrial fibrillation with RVR, transiently manifested as atrial tachycardia with aberrancy, s/p adenosine, resolved. -Likely due to stress of sepsis -Continued home Flecainide, Bisoprolol and Xarelto -Cardizem PRN 5. Anxiety and depression -Continued home medications, patient is very concerned about receiving these on time. 6. COPD, without evidence of exacerbation -Continued home inhalers 7. Progressive microcytic anemia -History due to iron deficiency anemia -We will check stool for occult blood -Transfused 2 units of PRBC -iron supplementation 8. Hypertension -Continue home medications 9. Dyslipidemia -Continued home statin 10. Gastroesophageal reflux disease -Continued home PPI 11. Glaucoma -Continued home eye drops 12. Poor dentition -Patient lost her bottom dentures; she is scheduled to have a dentist appointment on Saturday. Exam Vital Signs (Last) Date Time Temp Pulse Resp B/P Pulse Ox O2 Delivery O2 Flow Rate FiO2 07/30/16 11:55 36.7 80 16 118/55 96 Nasal Cannula 2.50 Exam General: Patient is in no apparent distress lying supine in bed with head elevated approximate 45. However, when patient gets up to the bathroom she experiences severe dyspnea on exertion. HEENT: Head is atraumatic and normocephalic. Eyes: Pupils are equally round and reactive to light and accommodation. Extraocular muscles are intact. Sclera are white, anicteric. Subconjunctival mucosa is pink. Ears and nose are unremarkable. Oropharynx: There is no mucosal lesions, there is no thrush, there is no pharyngitis. Neck: Is supple, there are no nodes, or masses or tenderness. Chest: Is significant for scattered bilateral wheezing. There is a few bibasilar rales right greater than left Heart: Rate, rhythm is regular. There is no new murmur, rub or gallop. Abdomen: Good bowel sounds are present. Abdomen is obese, soft, nontender, no organomegaly or masses were appreciated. Extremities: Are symmetrical and well perfused. There is minimal edema, there is no cellulitis, no rash. Neurologic: There are no focal neurological deficits. Cranial nerves II through XII are intact. There are no sensory or motor deficits. Psychiatric: Patients mood is calm and shows no sign of agitation. Test 07/25/16 12:50 07/25/16 13:00 07/25/16 13:20 07/25/16 16:02 Hold Purple Top Tube Received (Received) Hold Blue Top Tube Received (Received) Troponin T < 0.010ug/L (0.0-0.011) Lipase 18U/L (13-60) Hold [place] Top Tube Received (Received) Hold Ortiz Top Tube Received (Received) Hold Urine Received (Received) Urine Color Straw (YELLOW) Urine Appearance Cloudy (CLEAR,HAZY) Urine pH 6.5 (5.0-8.0) Urine Specific [place] 1.010 (1.003-1.035) Urine Protein 100mg/dL (NEG,TRACE) Urine Glucose (UA) Negativemg/dL (NEGATIVE) Urine Ketones Negativemg/dL (NEGATIVE) Urine Occult Blood Large (NEGATIVE) Urine Nitrite Negative (NEGATIVE) Urine Bilirubin Negative (NEGATIVE) Urine Urobilinogen Normalmg/dL (NORMAL) Urine Leukocyte Esterase Large (NEGATIVE) Urine RBC 11-50/hpf (0-2) Urine WBC >50/hpf (0-5) Urine Epithelial Cells Occasional/hpf (NONE-MOD) Urine Crystals None seen (NONE SEEN) Urine Bacteria Moderate/hpf (NONE-FEW) Urine Hyaline Casts None/lpf (NONE) Urine Granular Casts None seen (NONE SEEN) Urine Waxy Casts None seen (NONE SEEN) Urine Red Blood Cell Casts None seen (NONE SEEN) Urine White Blood Cell Casts None seen (NONE SEEN) Urine Mucus None seen (None Seen) Urine Trichomonas None seen (NONE SEEN) Urine Yeast None (NONE SEEN) Urinalysis Comment None Urine Culture Reflexed Indicated Lactic Acid Level 1.6mmol/L (0.4-2.0) Test 07/27/16 07:45 07/29/16 09:45 07/30/16 02:25 07/30/16 08:05 Procalcitonin 9.27ng/mL (0.00-0.08) Reticulocyte Count,Calculated 1.9% (0.6-2.6) Iron Level 16ug/dL (35-150) Total Iron Binding Capacity 309ug/dL (250-450) Percent Iron Saturation 5%sat (15-50) Unsaturated Iron Binding 292.5ug/dL Ferritin 41ng/mL (13-150) White Blood Count 11.1th/mm3 (3.8-10.1) Red Blood Count 3.92mil/mm3 (3.90-5.20) Hemoglobin 8.7g/dL (12.0-15.6) Hematocrit 30.5% (35.0-46.0) Mean Corpuscular Volume 77.8fL (81-100) Mean Corpuscular Hemoglobin 22.2pg (27.0-35.0) Mean Corpuscular Hemoglobin Concent 28.5% (32.0-37.0) Red Cell Distribution Width 18.6% (12.3-15.4) Platelet Count 274bil/L (150-400) Neutrophils (%) (Auto) 65.1% (40-74) Lymphocytes (%) (Auto) 15.5% (14-46) Monocytes (%) (Auto) 13.7% (4-12) Eosinophils (%) (Auto) 4.5% (0-5) Basophils (%) (Auto) 0.4% (0-3) Sodium Level 140mEq/L (134-144) Chloride Level 93mEq/L (97-108) Carbon Dioxide Level 34mmol/L (18-29) Blood Urea Nitrogen 6mg/dL (8-27) Creatinine 0.66mg/dL (0.57-1.00) Estimat Glomerular Filtration Rate 126mL/min (>59) Glucose Level 137mg/dL (60-99) Calcium Level 8.7mg/dL (8.5-10.1) Phosphorus Level 3.1mg/dL (2.5-4.9) Magnesium Level 1.8mg/dL (1.6-2.6) Total Bilirubin 0.6mg/dL (0.0-1.2) Aspartate Amino Transf (AST/SGOT) 13U/L (0-50) Alanine Aminotransferase (ALT/SGPT) 7U/L (0-32) Alkaline Phosphatase 119U/L (25-165) Total Protein 6.0g/dL (6.4-8.4) Albumin 3.2g/dL (3.4-5.0) Potassium Level 3.8mEq/L (3.5-5.2) Microbiology Results OPAL CULT URINE Final 07/27/16-835 Organism 1 ESCHERICHIA COLI U COLONY COUNT/QUANTITY >100,000 CFU/ml Cefazolin-predicts results for the oral agents, cefaclor,cefdinir, cefpodoximen, cefprozil, cefuroximne axetil, cephalexin and loracarbed when used for therapy of uncomplicated UTI's due to E. coli, K. pneumoniae, and Proteus mirabilis. Cefpodoxime, cefdinir and cefuroxime axetil may be tested individually because some isolates may be susceptible to these agents while testing resistant to cefazolin. (CLSI E504-K93 pg 53) 1. ESCHERICHIA COLI M.I.C Interp --------- ------ * AMOXICILLIN/CLAVULATE 4 S * AMPICILLIN >=32 R * CEFAZOLIN (CEPHALOSPORIN) UTI 4 S * CEFEPIME <=1 S * CEFTRIAXONE <=1 S * CEFUROXIME SODIUM 4 S * CIPROFLOXACIN >=4 R * ERTAPENEM <=0.5 S * GENTAMICIN <=1 S * IMIPENEM <=1 S * LEVOFLOXACIN >=8 R * NITROFURANTOIN <=16 S * TETRACYCLINE >=16 R * TOBRAMYCIN <=1 S * TRIMETHOPRIM/SULFAMETHOXAZOLE >=320 R Discharge Medications Discharge Medications ([Vitamin D3 gummies]) 2 EACH PO QAM (Reported) ([Vitamin C gummies]) 2 EACH PO QAM (Reported) ([MV gummies]) 2 EACH PO QAM (Reported) Amoxicillin/Clav K 875-125 mg (Augmentin 875-125 mg) 1 Each Tablet 1 TABLET PO BID Prescribed by: COURTNEY NAVARRO MD Bimatoprost (Lumigan) 45 Drop/2.5 Ml Ophsoln 1 DROP BOTH_EYES HS (Reported) Bisoprolol Fumarate (Bisoprolol Fumarate) 5 Mg Tablet 2.5 MG PO QPM (Reported) Budesonide/Formoterol 160-4.5 mcg Inh (Symbicort 160-4.5 mcg Inh) 120 Puff Inhaler 2 PUFFS INHALATION BID (Reported) Dicyclomine (Dicyclomine) 10 Mg Capsule 10 MG PO QPM (Reported) Duloxetine (Duloxetine) 60 Mg Capsule.dr 60 MG PO QPM (Reported) Estradiol (Estradiol) 1 Mg Tablet 1 MG PO QAM (Reported) Ferrous Gluconate (Ferrous Gluconate) 324 Mg Tab 324 MG PO BID Prescribed by: COURTNEY NAVARRO MD Flecainide Acetate (Flecainide Acetate) 50 Mg Tablet 50 MG PO BID (Reported) Hydrochlorothiazide (Hydrochlorothiazide) 12.5 Mg Capsule 12.5 MG PO QAM ( Reported) Omeprazole (Omeprazole) 40 Mg Capsule.dr 40 MG PO QAM (Reported) Ranitidine (Ranitidine) 300 Mg Tablet 300 MG PO QPM (Reported) Rivaroxaban (Xarelto) 20 Mg Tablet 20 MG PO QPM (Reported) Timolol (Betimol) 5 Ml Drops 1 DROP RIGHT_EYE QAM (Reported) Trazodone (Trazodone) 100 Mg Tablet 100 MG PO HS (Reported) l Acidophil/B Lactis/B Longum (Florajen3 Capsule) 460 Mg Capsule 460 MG PO QAM ( Reported) As needed Albuterol HFA (Proair HFA) 8.5 Gm Hfa.aer.ad 2 PUFFS INHALATION Q4H PRN PRN For Shortness of Breath (Reported) Alprazolam (Alprazolam) 0.5 Mg Tablet 0.5 MG PO TID PRN PRN anx (Reported) Hydrocodone-Acetaminophen 7.5-325 mg (Hydrocodone-Acetaminophen 7.5-325 mg) 1 Each Tablet 1 EACH PO QID PRN PRN For Pain (Reported) Ipratropium/Albuterol Sulfate (Iprat-Albut 0.5-3(2.5) mg/3 mL Inhalant Soln) 3 Ml Ampul.neb 3 ML INHALATION QID PRN PRN For Shortness of Breath (Reported) Followup Plan Discharge Diet: Heart Healthy Discharge Activity: No restrictions (The patient may resume her usual activities gradually as tolerated.) Follow-up with PCP in: 1 week (Follow up with PCP next week) Attending Statement Patient was seen and examined with Dr. Contreras. Chart reviewed and agree with the above discharge summary. Elena Contreras DO July 30, 2016 19:00 Jed Navarro MD July 30, 2016 22:42
[2016-07-31 07:14] LABS: Vitamin B12 602 pg/mL (211-946)
== END 2016-07-30 15:30 | disposition home or self-care (01) | DRG 871 ==
LOC: SED 12:42 → PCC 14:34
PROVIDERS: ADMIT Hospitalist; ATTEND Hospitalist
PROC: 30233N1 Transfusion of Nonautologous Red Blood Cells into Peripheral Vein, Percutaneous Approach (ICD-10-PCS; principal; 2016-07-29)
DX: A41.9 Sepsis, unspecified organism (principal); J18.1 Lobar pneumonia, unspecified organism; N10 Acute pyelonephritis; N39.0 Urinary tract infection, site not specified; R65.20 Severe sepsis without septic shock; I48.91 Unspecified atrial fibrillation; F41.9 Anxiety disorder, unspecified; F32.9 Major depressive disorder, single episode, unspecified; J44.9 Chronic obstructive pulmonary disease, unspecified; I10 Essential (primary) hypertension; E78.5 Hyperlipidemia, unspecified; K21.9 Gastro-esophageal reflux disease without esophagitis; H40.9 Unspecified glaucoma; Z79.01 Long term (current) use of anticoagulants; B96.20 Unspecified Escherichia coli [E. coli] as the cause of diseases classified elsewhere; D50.9 Iron deficiency anemia, unspecified

== ENCOUNTER 2016-10-23 12:35 | Inpatient (IN) | payer MEDICARE ==
[2016-10-23] VITALS (9 sets, daily range): BP systolic 99–117; BP diastolic 54–88; PULSE 76–124; RESP 16–30; O2SAT 92–98
[~2016-10-23] VITALS: Ht 157.5 cm; Wt 96.1 kg
[~2016-10-23 12:35] MED LIST changes: +ALBU8.5H2 INHALATION; +ALPR0.5T8 PO; -ALPRAZOLAM0.5 MG PO; +AMOX-366 PO; -AMOX500C2 PO; +BIMA2.5D5 BOTH_EYES; -BIMA2.5D5 OU; +BISO5TAB2 PO; -CALCIUM; +DICY10CA13 PO; -DICY10CA9 PO; -DULO60CA42 PO; +DULO60CA61 PO; +ESTR1TAB24 PO; -ESTR2TAB5 PO; +FEG324 PO; +FLC50T PO; +HYDR-3825 PO; -HYDR-4003 PO; +HYDR12.5 PO; +IPRA3AMP INHALATION; -IPRA4AER IH; +L AC460C PO; -LEVO750T9 PO; -LISI20TA PO; -MTP50TCR PO; -MULTIVITAMIN; +MULTIVITAMIN PO; +OMEP40CA36 PO; -OMPR20CCR PO; -OXYGEN; -PRO-AIR INH; +RANI300T4 PO; +SYMINH INHALATION; -SYMINH PO; +TIMO5DRO26 RIGHT_EYE; +TRAZ-118 PO; -TRAZ-146 PO; -TUMS PO; -VICODIN PO; +VITAMIN C GUMMIES PO; +VITAMIN D GUMMIES PO; -[UNRECOGNIZED DRUG - CODE] PO; -vit D3 PO
[2016-10-23] MEDS ORDERED: 0.9% Sodium Chloride 1,000 ML IV ONE ×2 (13:24→16:15)
[2016-10-23] MEDS ORDERED: Ondansetron 2 mg/mL 2 mL Inj IVPUSH PRN ×3 (13:25→15:30)
--- NOTE | 2016-10-23 13:28 | ED.REPORT ---
HPI-Abd Pain F 40 and Over Date of Service Oct 23, 2016 ED Provider: Fernando Kwong DO Patient is a 71 year old female with a hx of HTN, COPD, asthma, acute renal failure, and aflutter on Xarelto who presents to the ED via EMS complaining of dysuria onset 5 days ago. Associated symptoms include fever, lower abdominal pain, low back pain, and myalgia. She denies hematemesis, hematochezia, or any other symptoms. She had a kidney infection last month and was hospitalized for it. Nursing Notes Stated Complaint: ABDOMINAL PAIN Chief Complaint: Female Abdominal Pain Nursing Notes Reviewed: Yes Allergies: Coded Allergies: clarithromycin (Verified Allergy, Severe, HIVES, 07/25/16) ceftriaxone (Verified Allergy, Intermediate, Rash, itching, hot flash, 07/25) codeine (Verified Adverse Reaction, Intermediate, Hallucinations, 07/25/16) makes patient confused oxycodone (Verified Adverse Reaction, Intermediate, CONFUSION, 07/25/16) prednisone (Verified Adverse Reaction, Intermediate, States is can cause a -fib, 07/25/16) Received doses on last admit Scheduled ([Vitamin D3 gummies]) 2 EACH PO QAM ([Vitamin C gummies]) 2 EACH PO QAM ([MV gummies]) 2 EACH PO QAM Amoxicillin/Clav K 875-125 mg (Augmentin 875-125 mg) 1 Each Tablet 1 TABLET PO BID Bimatoprost (Lumigan) 45 Drop/2.5 Ml Ophsoln 1 DROP BOTH_EYES HS Bisoprolol Fumarate (Bisoprolol Fumarate) 5 Mg Tablet 2.5 MG PO QPM Budesonide/Formoterol 160-4.5 mcg Inh (Symbicort 160-4.5 mcg Inh) 120 Puff Inhaler 2 PUFFS INHALATION BID Dicyclomine (Dicyclomine) 10 Mg Capsule 10 MG PO QPM Duloxetine (Duloxetine) 60 Mg Capsule.dr 60 MG PO QPM Estradiol (Estradiol) 1 Mg Tablet 1 MG PO QAM Ferrous Gluconate (Ferrous Gluconate) 324 Mg Tab 324 MG PO BID Flecainide Acetate (Flecainide Acetate) 50 Mg Tablet 50 MG PO BID Hydrochlorothiazide (Hydrochlorothiazide) 12.5 Mg Capsule 12.5 MG PO QAM Omeprazole (Omeprazole) 40 Mg Capsule.dr 40 MG PO QAM Ranitidine (Ranitidine) 300 Mg Tablet 300 MG PO QPM Rivaroxaban (Xarelto) 20 Mg Tablet 20 MG PO QPM Timolol (Betimol) 5 Ml Drops 1 DROP RIGHT_EYE QAM Trazodone (Trazodone) 100 Mg Tablet 100 MG PO HS l Acidophil/B Lactis/B Longum (Florajen3 Capsule) 460 Mg Capsule 460 MG PO QAM Scheduled PRN Albuterol HFA (Proair HFA) 8.5 Gm Hfa.aer.ad 2 PUFFS INHALATION Q4H PRN PRN For Shortness of Breath Alprazolam (Alprazolam) 0.5 Mg Tablet 0.5 MG PO TID PRN PRN anx Hydrocodone-Acetaminophen 7.5-325 mg (Hydrocodone-Acetaminophen 7.5-325 mg) 1 Each Tablet 1 EACH PO QID PRN PRN For Pain Ipratropium/Albuterol Sulfate (Iprat-Albut 0.5-3(2.5) mg/3 mL Inhalant Soln) 3 Ml Ampul.neb 3 ML INHALATION QID PRN PRN For Shortness of Breath General Time Seen by MD: 13:12 Chief Complaint Dysuria Hx Obtained From: Patient Arrived By: Ambulance Sudden in Onset?: Yes Onset Occurred: 5 days ago Symptom Duration: Since onset Recent Healthcare: Recent hospitalization Similar Sx Previous: Yes Risk Factors )( AAA Risk Stratification HypertensionNo Prior AAA Risk factors reviewed Past Medical History Past Medical History 1. Severe COPD, requiring nocturnal O2. 2. Prior admissions for sepsis associated with community-acquired pneumonia (most recently January 11, 2013). 3. Hypertension. 4. Dyslipidemia. 5. Gastroesophageal reflux disease. 6. Irritable bowel syndrome. 7. Glaucoma. 8. Anxiety and depression. 9. Iron deficiency anemia. TSI 10, TIBC 322, 3% saturation, ferritin 65, B12 1469 (03/13/2013). Venofer 300 mg IV was given on 03/14/2013 and on 03/16/2013. The patient will need outpatient colonoscopy, and referral was make to Dr. Thompson for colonoscopy in the future 10. Atrial flutter with fast ventricular response. ECG (03/15/2013) confirmed atrial flutter with variable block. Several doses of Cardizem IV push were given; the patient continued to go in and out of atrial flutter. This resolved after initiation of Toprol XL 50 mg daily given at noon. Echocardiogram (03/16/2013) showed LVEF 65-70% without segmental wall motion. CHADS2 score is 1; no systemic anticoagulation initiated this admission. 11. History of acute renal failure possible secondary to acute interstitial nephritis that required short term dialysis Reports: Asthma Past Surgical History Kidney biopsy Stomach sleeve Reports: Cataract surgery, Hysterectomy Reports: Back/neck surgery, Knee replacement Smoking History Former Smoker Social History Other Social History: Good social support, , Local resident Ambulatory Status Independent Review of Systems Constitutional: Reports: Fever GI: Reports: Abdominal pain, Denies: Hematemesis, Hematochezia Female: Reports: Dysuria Musculoskeletal: Reports: Back pain, Myalgia Complete sys rev & neg: except as marked. Physical Exam Vital Signs Vital Signs (First) Date Time Temp Pulse Resp B/P Pulse Ox O2 Delivery O2 Flow Rate FiO2 10/23/16 13:05 39.5 124 30 117/60 92 Room Air 10/23/16 15:17 3 Initial VS: Reviewed, Vital signs abnormal Head / Eyes: Atraumatic, Normocephalic Neck: Full range of motion Skin: Warm, Dry Neurologic: Alert, Oriented, Nonfocal Psychiatric: Mood/affect normal, Behavior normal, Normal thought content General/Constitutional: Awake, Alert Distress / Hydration: Positive: Distress mild Respiratory / Chest: Breath sounds NL, Breath sounds = bilat, No respiratory distress Heart Rate / Rhythm: Positive: Tachycardia Abdomen: Atraumatic, Soft lower abdominal tenderness Flank / Spine / Paraspinal: Positive: Flank tender L, Flank tender R Interpretation & Diagnostics Lab Results Interpretation Result Diagram: 10/23/16 1335 10/23/16 1335 Test 10/23/16 13:00 10/23/16 13:35 Urine Color Yellow (YELLOW) Urine Appearance Hazy (CLEAR,HAZY) Urine pH 6.0 (5.0-8.0) Urine Specific [place] 1.015 (1.003-1.035) Urine Protein 100mg/dL (NEG,TRACE) Urine Glucose (UA) Negativemg/dL (NEGATIVE) Urine Ketones Negativemg/dL (NEGATIVE) Urine Occult Blood Moderate (NEGATIVE) Urine Nitrite Positive (NEGATIVE) Urine Bilirubin Negative (NEGATIVE) Urine Urobilinogen Normalmg/dL (NORMAL) Urine Leukocyte Esterase Small (NEGATIVE) Urine RBC 11-50/hpf (0-2) Urine WBC 11-50/hpf (0-5) Urine Epithelial Cells Occasional/hpf (NONE-MOD) Urine Crystals None seen (NONE SEEN) Urine Bacteria Many/hpf (NONE-FEW) Urine Hyaline Casts None/lpf (NONE) Urine Granular Casts None seen (NONE SEEN) Urine Waxy Casts None seen (NONE SEEN) Urine Red Blood Cell Casts None seen (NONE SEEN) Urine White Blood Cell Casts None seen (NONE SEEN) Urine Mucus None seen (None Seen) Urine Trichomonas None seen (NONE SEEN) Urine Yeast None (NONE SEEN) Urinalysis Comment None Urine Culture Reflexed Indicated Hold Urine Received (Received) White Blood Count 22.0th/mm3 (3.8-10.1) Red Blood Count 4.58mil/mm3 (3.90-5.20) Hemoglobin 12.6g/dL (12.0-15.6) Hematocrit 40.1% (35.0-46.0) Mean Corpuscular Volume 87.6fL (81-100) Mean Corpuscular Hemoglobin 27.5pg (27.0-35.0) Mean Corpuscular Hemoglobin Concent 31.4% (32.0-37.0) Red Cell Distribution Width 19.2% (12.3-15.4) Platelet Count 231bil/L (150-400) Neutrophils (%) (Auto) 91.1% (40-74) Lymphocytes (%) (Auto) 2.1% (14-46) Monocytes (%) (Auto) 5.7% (4-12) Eosinophils (%) (Auto) 0.1% (0-5) Basophils (%) (Auto) 0.2% (0-3) Erythrocyte Sedimentation Rate 25mm/hr (0-40) Sodium Level 135mEq/L (134-144) Potassium Level 3.5mEq/L (3.5-5.2) Chloride Level 93mEq/L (97-108) Carbon Dioxide Level 26mmol/L (18-29) Blood Urea Nitrogen 16mg/dL (8-27) Creatinine 1.24mg/dL (0.57-1.00) Estimat Glomerular Filtration Rate 61mL/min (>59) Glucose Level 135mg/dL (60-99) Lactic Acid Level 1.6mmol/L (0.4-2.0) Calcium Level 8.8mg/dL (8.5-10.1) Magnesium Level 1.4mg/dL (1.6-2.6) Total Bilirubin 0.6mg/dL (0.0-1.2) Aspartate Amino Transf (AST/SGOT) 15U/L (0-50) Alanine Aminotransferase (ALT/SGPT) 6U/L (0-32) Alkaline Phosphatase 83U/L (25-165) Troponin T < 0.010ug/L (0.0-0.011) Total Protein 6.5g/dL (6.4-8.4) Albumin 3.7g/dL (3.4-5.0) ECG Interpretation ECG Interpretation: Sinus tachycardia with a rate of 108 Anterior infarct, old Time: 13:55 Interpreted by: ED physician X-Ray Chest Interpretation Chest Xray Interpretation: IMPRESSION: Small right pleural effusion or pleural scarring. Dictated by: Dara Nuno M.D. on 10/23/2016 at 12:54 Approved by: Dara Nuno M.D. on 10/23/2016 at 12:55 View: Portable, 1 view Interpretation / Wet Read by: Interpret - Radiologist Re-Eval/Medical Decision Med Decision/Clinical Course urosepsis. will admit Re-Evaluation/Progress : Time of Eval: 14:00 )( Re-Eval Abdomen: Soft Re-Evaluation/Progress Note: Discussed plan for admission. Patient understands and agrees with plan. All questions addressed at this time. Consultation : Referral / Consult Name: Samuel Red MD Consulted With: Hospitalist Call Returned at: 15:03 Director Patient Financial Services: Will see patient, Agrees with eval, Agrees with plan, Accepts admit Note: Discussed pt's case. Accepts admit. Counseled Regarding: Diagnosis, Lab results, Need for admission Discharge & Departure Primary Impression: Sepsis Sepsis type: sepsis due to unspecified organism Qualified Code: A41.9 - Sepsis, unspecified organism Disposition: ADMITTED TO HOSPITAL Discharge Condition All VS Reviewed: Yes Condition: Stable Referrals: OTHER,PHYSICIAN (PCP) (Family) Scribe Attestation Portions of this note were transcribed by Mariama White. IDr. Kwong personally performed the history, physical exam and medical decision-making; I reviewed and confirmed the accuracy of the information in the transcribed note. Signed by: Marques Camargo, 10/23/16 Fernando Kwong DO Oct 23, 2016 13:27 MARIAMA WHITE Oct 23, 2016 13:54
[2016-10-23 13:47] LABS: BASOPHILS % (AUTO) 0.2 % (0-3); EOSINOPHILS % (AUTO) 0.1 % (0-5); MONOCYTES % (AUTO) 5.7 % (4-12); Mean Corpuscular Hemoglobin 27.5 pg (27.0-35.0); Mean Corpuscular Volume 87.6 fL (81-100); NEUTROPHILS % (AUTO) 91.1 % (40-74); Platelet Count 231 bil/L (150-400)
--- NOTE | 2016-10-23 13:57 | DRSVH ---
PROCEDURE: X-RAY CHEST ONE VIEW, PORTABLE ([id number]) INDICATIONS: 71 year old woman with fever. TECHNIQUE: One view of the chest was acquired. COMPARISON: [facility], CT, CHEST ANGIO-PE, 05/08/2013, 20:34. [facility], C R, CHEST 2VW, 05/08/2013, 18:46. [facility], CR, XR CHEST 1VW (PORTABLE), 07/29/2016, 11:1 2. FINDINGS: There is rotation. Surgical changes and devices: None. Lungs and pleura: Blunting of the right costophrenic angle may be caused by pleural effusion or pleu ral scarring. No pneumothorax. Mediastinum: Mediastinal contours appear normal. Heart size is normal. Bones and chest wall: No suspicious bony lesions. Overlying soft tissues appear unremarkable. IMPRESSION: Small right pleural effusion or pleural scarring. Dictated by: Dara Nuno M.D. on 10/23/2016 at 12:54 Approved by: Dara Nuno M.D. on 10/23/2016 at 12:55
[2016-10-23 14:13] LABS: ERYTHROCYTE SEDIMENTATION RATE 25 mm/hr (0-40)
[2016-10-23 14:14] LABS: TROPONIN T < 0.010 ug/L (0.0-0.011)
[2016-10-23 14:22] LABS: Magnesium 1.4 mg/dL (1.6-2.6)
[2016-10-23] MEDS ORDERED: Piperacillin-Tazo 3.375 Gm Inj 3.375 GM in Dextrose 5% Minibag Plus 50 ML IV ONE (14:30)
[2016-10-23] MEDS ORDERED: Magnesium Sulf 4 Gm/100 mL H2O 4 GM in IV Premix 1 EACH IV ONE (14:30)
[2016-10-23 14:31] LABS: APPEARANCE,URINE HAZY (CLEAR,HAZY); COLOR,URINE YELLOW (YELLOW); OCCULT BLOOD,URINE MODERATE (NEGATIVE); UROBILINOGEN,URINE NORMAL (NORMAL)
[2016-10-23] MEDS ORDERED: 0.9% Sodium Chloride 1,000 ML IV SCH ×2 (15:18→15:30)
[2016-10-23] MEDS ORDERED: Alum-Mag Hydrox-Simeth 30 mL Suspension PO PRN ×2 (15:20→15:30)
[2016-10-23] MEDS ORDERED: Polyethylene Glycol (PEG) 17 Gm Powder PO PRN (15:30)
--- NOTE | 2016-10-23 15:30 | DRSVH ---
PROCEDURE: CT ABDOMEN AND PELVIS WITH CONTRAST ([id number]) INDICATIONS: sepsis, flank and abd pain TECHNIQUE: After the administration of intravenous contrast, 5 mm thick sections acquired from the diaphragm to the symphysis. 5 mm coronal and sagittal reformats were acquired. For radiation dose reduction, the following was used: automated exposure control, adjustment of mA and/or kV according to patient siz e. COMPARISON: None. FINDINGS: Image quality: Excellent. ABDOMEN: Lung bases: Right middle lobe and lingular scarring/atelectasis. Coronary artery calcifications are p resent. Solid organs: Nonspecific 3 mm hepatic hypodensity in the right lobe, too small to characterize other white liver and spleen are normal in size and enhancement. Gallbladder negative. Biliary system is n on dilated. Pancreas enhances normally. No adrenal nodules. Kidneys demonstrate normal size and en hancement, without hydronephrosis. Multiple left renal cysts are present. Bilateral perinephric stra nding is present although right slightly greater than left. No definite nephrolithiasis seen. Peritoneum and bowel: No evidence of bowel obstruction. No free fluid. No free air identified. There is scattered colonic diverticulosis. Appendix appears normal. The rectum is decompressed otherwise un remarkable. There is a small hiatal hernia Nodes and vessels: No retroperitoneal or mesenteric adenopathy by size criteria. Aorta and inferior vena cava are normal in size. Miscellaneous: No ventral hernias. PELVIS: Genitourinary: The bladder unremarkable Miscellaneous: No inguinal hernias or adenopathy. Bones: No suspicious bony lesions. No vertebral body compression fractures. Posterior spinal fixat ion hardware. IMPRESSION: Right perinephric stranding, although unclear etiology. Recommend correlation with urinalysis. Theore tically a recently passed right sided calculus is in the differential. No hydronephrosis. Normal appendix. Left renal cysts. Small hiatal hernia. Dictated by: Keon Trujillo M.D. on 10/23/2016 at 15:21 Approved by: Keon Trujillo M.D. on 10/23/2016 at 15:29
--- NOTE | 2016-10-23 16:04 | PCM.HPMED ---
Subjective Date of Service Oct 23, 2016 Primary Provider: Admitting Physician: Samuel Red MD Primary Care Physician: Vikki Attending Physician: Samuel Red MD Chief Complaint: Left flank pain History of Present Illness: 71-year-old female with a history of COPD and asthma, hypertension, A. fib S/P ablation on Xarelto, with admission in July for pyelonephritis presented to [facility] due to 1 week of suprapubic and left flank pain with dysuria. Patient states that one week ago she started noticing suprapubic tenderness and left flank pain that is continued to worsen over the last week. She complains of burning on urination, urinary urgency, incomplete voiding, fevers, and chills. On last admission the patient was treated with Zosyn for 5 days and then discharged home on Augmentin. She states she has been asymptomatic since that time. Patient denies chest pain, shortness breath, headache, nausea, vomiting, or changes in stool. In emergency department the patient was given Zosyn and 1 L of normal saline. Patient had a leukocytosis 91% neutrophils, and a small bump in her creatinine to 1.24, normal baseline of 0.66. Patient's UA revealed positive for nitrite, leukocyte esterase, and bacteria and was sent for culture. EKG in the emergency department revealed tachycardia of 108 with what appears to be sinus rhythm. Patient was also desaturating on first presentation, which she says is normal due to her severe COPD. She was placed on 2 L oxygen and her saturation went from high 70s to the low 90s Review of Systems: Complete review of systems performed; pertinent positives and negatives per history of present illness, all other systems reviewed and are negative Allergies Coded Allergies: clarithromycin (Verified Allergy, Severe, HIVES, 07/25/16) ceftriaxone (Verified Allergy, Intermediate, Rash, itching, hot flash, 07/25) codeine (Verified Adverse Reaction, Intermediate, Hallucinations, 07/25/16) makes patient confused oxycodone (Verified Adverse Reaction, Intermediate, CONFUSION, 07/25/16) prednisone (Verified Adverse Reaction, Intermediate, States is can cause a -fib, 07/25/16) Received doses on last admit Home Medications Bimatoprost (Lumigan) 45 Drop/2.5 Ml Ophsoln 1 DROP BOTH_EYES HS Bisoprolol Fumarate (Bisoprolol Fumarate) 5 Mg Tablet 2.5 MG PO QPM Budesonide/Formoterol 160-4.5 mcg Inh (Symbicort 160-4.5 mcg Inh) 120 Puff Inhaler 2 PUFFS INHALATION BID Dicyclomine (Dicyclomine) 10 Mg Capsule 10 MG PO QPM Duloxetine (Duloxetine) 60 Mg Capsule.dr 60 MG PO QPM Estradiol (Estradiol) 1 Mg Tablet 1 MG PO QAM Ferrous Gluconate (Ferrous Gluconate) 324 Mg Tab 324 MG PO BID Flecainide Acetate (Flecainide Acetate) 50 Mg Tablet 50 MG PO BID Hydrochlorothiazide (Hydrochlorothiazide) 12.5 Mg Capsule 12.5 MG PO QAM Omeprazole (Omeprazole) 40 Mg Capsule.dr 40 MG PO QAM Ranitidine (Ranitidine) 300 Mg Tablet 300 MG PO QPM Rivaroxaban (Xarelto) 20 Mg Tablet 20 MG PO QPM Timolol (Betimol) 5 Ml Drops 1 DROP RIGHT_EYE QAM Trazodone (Trazodone) 100 Mg Tablet 100 MG PO HS l Acidophil/B Lactis/B Longum (Florajen3 Capsule) 460 Mg Capsule 460 MG PO QAM Albuterol HFA (Proair HFA) 8.5 Gm Hfa.aer.ad 2 PUFFS INHALATION Q4H PRN PRN For Shortness of Breath Alprazolam (Alprazolam) 0.5 Mg Tablet 0.5 MG PO TID PRN PRN anx Hydrocodone-Acetaminophen 7.5-325 mg (Hydrocodone-Acetaminophen 7.5-325 mg) 1 Each Tablet 1 EACH PO QID PRN PRN For Pain Ipratropium/Albuterol Sulfate (Iprat-Albut 0.5-3(2.5) mg/3 mL Inhalant Soln) 3 Ml Ampul.neb 3 ML INHALATION QID PRN PRN For Shortness of Breath PMH 1. Severe COPD, requiring nocturnal O2. 2. Prior admissions for sepsis associated with community-acquired pneumonia and pyelonephritis 3. Hypertension. 4. Dyslipidemia. 5. Gastroesophageal reflux disease. 6. Irritable bowel syndrome. 7. Glaucoma. 8. Anxiety and depression. 9. Iron deficiency anemia. Pending colonoscopy with Dr. Thompson 10. Atrial flutter with fast ventricular response. ECG (03/15/2013) confirmed atrial flutter with variable block. Several doses of Cardizem IV push were given; the patient continued to go in and out of atrial flutter. This resolved after initiation of Toprol XL 50 mg daily given at noon. Echocardiogram (03/16/2013) showed LVEF 65-70% without segmental wall motion. CHADS2 score is 1; no systemic anticoagulation initiated this admission. 11. History of acute renal failure possible secondary to acute interstitial nephritis that required short term dialysis Surgical History Kidney biopsy Stomach sleeve Reports: Cataract surgery, Hysterectomy Reports: Back/neck surgery, Knee replacement Family History Grandmother had an SD in her 80s Father was an alcoholic who at unknown age Social History Hx Alcohol Use: No Hx Substance Use: No Hx Tobacco Use: Yes (smoked since teenager but quit 2002) Smoking Status: Former Smoker (quit in 2002; 20-30 pack year history) Exam Vital Signs Vital Sign - Last Date Time Temp Pulse Resp B/P Pulse Ox O2 Delivery O2 Flow Rate FiO2 10/23/16 15:17 38.1 103 16 108/88 94 Nasal Cannula 3 Exam General: Pleasant female in no acute distress HEENT: PERRLA, EOMI, nonicteric, membranes moist Lymph: No lymphadenopathy Cardio: Regular rate and rhythm no murmurs rubs or gallops Respiratory: CTA bilaterally, mild wheezes and crackles with decreased breath sounds Abdomen: Soft, obese, positive bowel sounds, nontender even in his suprapubic region, positive CVA tenderness bilaterally Extremities: No edema, 5/5 strength, sensation intact Psych: Appropriate mood and affect Neuro: CN II through XII grossly intact, sensation intact throughout Skin: No rash Lab and Diagnostics Result Diagram: 10/23/16 1335 10/23/16 1335 X-Rays, CTs and MRIs Chest x-ray IMPRESSION: Small right pleural effusion or pleural scarring. Dictated by: Dara Nuno M.D. on 10/23/2016 at 12:[address] Right perinephric stranding, although unclear etiology. Recommend correlation with urinalysis. Theoretically a recently passed right sided calculus is in the differential. No hydronephrosis. Normal appendix. Left renal cysts. Small hiatal hernia. Dictated by: Keon Trujillo M.D. on 10/23/2016 at 15:21 Assessment & Plan Ashley Cruz is a 71 year old woman with past medical history of hypertension, COPD, A fib on Xarelto, anxiety and depression who presented to the [facility] ED via EMS due to severe dysuria for one week. Sepsis, secondary to pyelonephritis; present admission; ongoing -Patient admitted in July with sepsis due to pyelonephritis -Patient febrile with leukocytosis of 22,000, tachycardic and tachypneic -Started on Zosyn -Urine culture pending -Blood cultures ordered and pending -1 L normal saline in ED second liter on floor; maintain at 125 mL/hour overnight -Lactic acid normal Acute kidney injury secondary to sepsis; present missing; ongoing -Creatinine at baseline 0.66 and currently 1.24 on admission -Ratio and history does not support prerenal -Patient given 1 L NS in ED -Recheck in a.m. -Treat sepsis as above COPD, without evidence of exacerbation; present on admission; stable -Pt needed O2 initially in ED; resolved once she stopped exerting herself -Continue home inhalers -Continue patient on O2 as needed -Patient on home O2 at night and with exertion Atrial fibrillation with RVR s/p reported ablation; present on admission; ongoing -Likely due to stress of sepsis -Continue home Flecainide, Bisoprolol and Xarelto -Cardizem PRN Hyperglycemia; present on admission; ongoing -BG 135 on admit -no reported hx of diabetes -A1c ordered -Will follow Anxiety and depression -Continue home medications, patient is very concerned about receiving these on time. Chronic microcytic anemia -Continue to monitor -Patient following up with Dr. Thompson for colonoscopy Hypertension -Continue home medications Dyslipidemia -Continue home statin Gastroesophageal reflux disease -Continue home PPI Glaucoma -Continue home eye drops Disposition: Patient is being admitted to inpatient status with expected length of stay greater than two midnights due to to severity of presentation, duration of treatment, and risks of adverse events disposition Full code Pain Evaluation: Adequate Pain Control VTE Prophylaxis Indicated: VTE on Admission Resuscitation Status: CPR: Attempt Resuscitation Ian Angel DO Oct 23, 2016 16:04
[2016-10-23] MEDS: Sodium Chloride LOK Flush 10 mL Syringe IVFLUSH SCH (16:30)
[2016-10-23] MEDS ORDERED: ASCO250T7 PO (16:44)
[2016-10-23] MEDS ORDERED: CHOL10008 PO (16:44)
[2016-10-23] MEDS ORDERED: L AC460C PO (16:44)
[2016-10-23] MEDS ORDERED: UMEC1DIS IH (16:44)
[2016-10-23] MEDS ORDERED: BRIN10DR RIGHT_EYE (16:44)
[2016-10-23] MEDS ORDERED: PEDI1TAB PO (16:44)
[2016-10-23] MEDS ORDERED: FERR324T2 PO (16:44)
--- NOTE | 2016-10-23 17:00 | NUR ---
Admit Pt arrived on unit alert and oriented X4 with IV mg running. VALDEZ. Cooperative with care. Pt has steady gait but stated that she is weaker than normal. VS: BP 100/54, P 92, T 37.0, 1L NC Sp02 92%. Pt stated that she only uses oxygen HS but was desating in ER. Lungs clear to auscultation and moderately diminished Med rec completed by admit nurse. Pt denies any pain and is eating dinner. Bed locked in low position and call light within reach.
[2016-10-23] MEDS ORDERED: Albuterol-Ipratropium 3 mL Inhalation Solution INHALATION PRN (17:20)
[2016-10-23] MEDS: Heparin 5,000 Unit/mL Inj SUBQ SCH (18:42)
[2016-10-23] MEDS ORDERED: Albuterol 2.5 mg/3 mL Inhalation Solution NEB PRN (20:00)
[2016-10-23] MEDS: DULoxetine 30 mg DR Capsule PO SCH (20:28)
[2016-10-23] MEDS: Piperacillin-Tazo 3.375 Gm Inj 3.375 GM in Dextrose 5% Minibag Plus 50 ML IV SCH (20:28)
[2016-10-23] MEDS: Arformoterol 15 mCg/2 mL Inhalation Solution NEB SCH (20:30)
[2016-10-23] MEDS: HYDROcodone-APAP 7.5-325 mg Tablet PO PRN (21:49)
[2016-10-24] VITALS (16 sets, daily range): BP systolic 105–135; BP diastolic 56–66; PULSE 72–113; RESP 16–25; O2SAT 66–97
[2016-10-24] MEDS: Sodium Chloride LOK Flush 10 mL Syringe IVFLUSH SCH ×3 (00:30→16:13)
[2016-10-24] MEDS: ALPRAZolam 0.5 mg Tablet PO PRN ×2 (03:09→11:58)
[2016-10-24] MEDS: Heparin 5,000 Unit/mL Inj SUBQ SCH ×2 (03:16→08:16)
[2016-10-24] MEDS: Piperacillin-Tazo 3.375 Gm Inj 3.375 GM in Dextrose 5% Minibag Plus 50 ML IV SCH ×3 (04:46→20:50)
[2016-10-24] MEDS: Pantoprazole 40 mg ER24 Tablet PO SCH (06:45)
[2016-10-24 07:45] LABS: BASOPHILS % (AUTO) 0.2 % (0-3); EOSINOPHILS % (AUTO) 0.7 % (0-5); Mean Corpuscular Hemoglobin 27.5 pg (27.0-35.0)
[2016-10-24 07:49] LABS: MONOCYTES % (AUTO) 8.4 % (4-12); Mean Corpuscular Volume 89.3 fL (81-100); NEUTROPHILS % (AUTO) 82.8 % (40-74); Platelet Count 211 bil/L (150-400)
[2016-10-24] MEDS: Arformoterol 15 mCg/2 mL Inhalation Solution NEB SCH ×2 (08:05→21:21)
[2016-10-24] MEDS: Dorzolamide 2% 10 mL Ophthalmic Solution RIGHT_EYE SCH (08:16)
[2016-10-24] MEDS: Tiotropium 18mcg/Cap 5 Capsule Inhaler Kit INHALATION SCH (08:19)
[2016-10-24] MEDS: HYDROcodone-APAP 7.5-325 mg Tablet PO PRN ×2 (11:58→20:11)
--- NOTE | 2016-10-24 13:56 | PCM.PNMED ---
Subjective Date of Service Oct 24, 2016 Subjective Patient seen and examined today. She says she feels much better today. Vitals stable. Exam Vital Signs Vital Sign - Last Date Time Temp Pulse Resp B/P Pulse Ox O2 Delivery O2 Flow Rate FiO2 10/24/16 12:38 36.5 84 22 110/56 97 Nasal Cannula 1.00 Intake and Output 10/23/16 10/23/16 10/24/16 Cumulative From/Thru 15:00 23:00 07:00 10/23/16 13:05 - 10/24/16 06:01 Intake Total 1000 ml 763 ml 400 ml 2163 ml Output Total 0 ml 1100 ml 1100 ml Balance 1000 ml 763 ml -700 ml 1063 ml Intake Oral 686 ml 400 ml 1086 ml IV Total 1000 ml 77 ml 1077 ml Output Urine Total 0 ml 1100 ml 1100 ml Exam General: Pleasant female in no acute distress HEENT: PERRLA, EOMI, nonicteric, membranes moist Lymph: No lymphadenopathy Cardio: Regular rate and rhythm no murmurs rubs or gallops Respiratory: CTA bilaterally, mild wheezes and crackles with decreased breath sounds Abdomen: Soft, obese, positive bowel sounds, nontender even in his suprapubic region, positive CVA tenderness bilaterally Extremities: No edema, 5/5 strength, sensation intact Psych: Appropriate mood and affect Neuro: CN II through XII grossly intact, sensation intact throughout Skin: No rash Lab and Diagnostics Result Diagram: 10/24/16 0705 10/24/16 0705 X-Rays, CTs and MRIs Chest x-ray IMPRESSION: Small right pleural effusion or pleural scarring. Dictated by: Dara Nuno M.D. on 10/23/2016 at 12:[address] Right perinephric stranding, although unclear etiology. Recommend correlation with urinalysis. Theoretically a recently passed right sided calculus is in the differential. No hydronephrosis. Normal appendix. Left renal cysts. Small hiatal hernia. Dictated by: Keon Trujillo M.D. on 10/23/2016 at 15:21 Assessment & Plan Ashley Cruz is a 71 year old woman with past medical history of hypertension, COPD, A fib on Xarelto, anxiety and depression who presented to the [facility] ED via EMS due to severe dysuria for one week. Sepsis, secondary to pyelonephritis; present admission; ongoing -Patient admitted in July with sepsis due to pyelonephritis -Patient febrile with leukocytosis of 22 > 24 -Urine culture pending -Blood cultures ordered and pending -1 L normal saline in ED second liter on floor; maintain at 125 mL/hour overnight -Lactic acid normal - CT abd/pelvis noticed, no signs of abscess or hydronephrosis Acute kidney injury secondary to sepsis; present missing; ongoing -Creatinine at baseline 0.66 and currently 1.24 on admission, will continue to monitor -Ratio and history does not support prerenal -Patient given 1 L NS in ED, continue maintenance -Treat sepsis as above COPD, without evidence of exacerbation; present on admission; stable -Pt needed O2 initially in ED; resolved once she stopped exerting herself -Continue home inhalers -Continue patient on O2 as needed -Patient on home O2 at night and with exertion Atrial fibrillation with RVR s/p reported ablation; present on admission; ongoing -Likely due to stress of sepsis -Continue home Flecainide, Bisoprolol and Xarelto -Cardizem PRN Hyperglycemia; present on admission; ongoing -BG 135 on admit -no reported hx of diabetes -A1c ordered -Will follow Anxiety and depression -Continue home medications, patient is very concerned about receiving these on time. Chronic microcytic anemia -Continue to monitor -Patient following up with Dr. Thompson for colonoscopy Hypertension -Continue home medications Dyslipidemia -Continue home statin Gastroesophageal reflux disease -Continue home PPI Glaucoma -Continue home eye drops Disposition: Patient is being admitted to inpatient status with expected length of stay greater than two midnights due to to severity of presentation, duration of treatment, and risks of adverse events disposition Full code VTE Mechanical Devices: Venous Foot Pump Resuscitation Status: CPR: Attempt Resuscitation Time spent 35 mins Samuel Red MD Oct 24, 2016 13:56
--- NOTE | 2016-10-24 15:08 | NUR ---
Social Work-initial assessment: Data:See initial assessment. Pt is a 71 y/o female who was admitted on 10/23/16 for sepsis per H&P. Pt's insurance is [employer] and [employer] and no PCP listed. EMR Reviewed. Pt's readmission score is 5-high risk. ABDIEL met with pt to discuss discharge planning, SW role explained. Pt is alert and oriented x3. No concerns noted from MD pipe coremaker regarding pt's ability for capacity for self care.Pt resides at home with her in [facility] where she remains independent with ADLS. Pt drives and uses a fww at baseline. Pt has no HH or SNF history. Pt has no snf care insurance or VA benefits. SW discussed DPOA/advanced directive, pt confirms she has completed this, W encouraged a copy to be brought in. Pt has no PCP, SW discussed this with pt. Pt states she would like to [facility], ABDIEL to await MD orders. SW provided discharge planning checklist to pt and encouraged them to call with any questions, SW provided phone number. Pt's to provide transport home. No anticipated discharge needs. SW will continue to follow if needs arise. Assessment:Pt who is independent at baseline. Plan:Pt to discharge home when medically stable via POV. SW to setup PCP appointment for pt once MD order has been received.No anticipated discharge needs. SW will continue to follow if needs arise. LESLIE Casey Addendum: 10/24/16 at 1515 by MARY ANN MORALES Amended: Links added.
--- NOTE | 2016-10-24 16:04 | ABG ---
DateTimeAnalyzed 15:56:00 -_ pH ____7.374 - 7.350 7.450 pCO2 ___51.7__ -mmHg 35.0 45.0 pO2 ___52.4__ -mmHg 69.0 116 HCO3- ___29.5__ -mmol/L 22.0 26.0 ABE ____3.9__ -mmol/L -2.0 2.0 tHb ___11.4__ -g/dL O2Hb ___84.7__ -% COHb ____1.2__ -% MetHb ____0.7__ -% sO2 ___86.3__ -% FIO2 ___32.0__ -% Drawn By NB - Date/Time Notified____ 16:03:00 -_ Liter_Flow ____4.0__ -L/min Oxygen Device 1 __CANNULA - Notified By nb - Notified Whom DR Neda - B 757 -mmHg tO2 ___13.6__ -Vol% Kelby test N/A -
--- NOTE | 2016-10-24 18:27 | DRSVH ---
PROCEDURE: CT ANGIO CHEST PULMONARY EMBOLISM ([id number]) INDICATIONS: Shortness of breath, tachy TECHNIQUE: After the administration of intravenous contrast, 2 mm thick sections acquired from the pulmonary api denise to the posterior costophrenic angles. 3-dimensional maximum intensity projection (MIP) coronal a nd sagittal reformats were then acquired through the thorax. For radiation dose reduction, the follo wing was used: automated exposure control, adjustment of mA and/or kV according to patient size. COMPARISON: [facility], CT, CT ABD PELVIS W CON, 10/23/2016, 14:39. FINDINGS: Image quality: Excellent. Pulmonary arteries: Pulmonary arteries are normal in size, and demonstrate no intraluminal filling d efects to suggest central pulmonary embolism. Lungs and pleura: Central and peripheral airways are clear. Since yesterday, a small right-sided pleu ral effusion with right basilar masslike atelectasis or infiltrate and right lower lobe interstitial thickening has developed. Emphysema. Mediastinum: Heart size is normal, without pericardial effusion. No mediastinal or hilar adenopathy . Thoracic aorta is normal in caliber and enhancement. Esophagus is normal in caliber. Bones and chest wall: No suspicious bony lesions. Ribs and thoracic spine appear intact throughout. Thyroid gland is present. No axillary or supraclavicular adenopathy. Abdomen: Stable partially visualized left adrenal nodule. Small esophageal hilar hernia. Otherwise up per abdominal solid organs appear normal in the early arterial phase of enhancement. IMPRESSION: 1. No acute pulmonary emboli. 2. Since yesterday new trace right basilar pleural effusion with associated masslike pulmonary opacit ies have developed. Findings are most consistent with infection or aspiration. Dictated by: Cody Nelson M.D. on 10/24/2016 at 18:16 Approved by: Cody Nelson M.D. on 10/24/2016 at 18:25
--- NOTE | 2016-10-24 18:30 | NUR ---
[place] [facility] [place] [facility] Pt arrived to [facility] on 4L NC, breathing RR in the high 20s. Put on BIPAP of 30%, 02/27. Pt A&O x3, able to assist with turns. TELE afib/flutter in the 120s, pt denies chest pain. Pt SOB at rest and on exertion, sats on BIPAP 96%, RR 23.
[2016-10-24] MEDS: MethylprednisoLONE Sodium Succinate 40 mg/mL Inj IVPUSH SCH (18:38)
[2016-10-24] MEDS: DULoxetine 30 mg DR Capsule PO SCH (20:10)
[2016-10-25] VITALS (13 sets, daily range): BP systolic 102–147; BP diastolic 48–72; PULSE 64–94; RESP 13–22; O2SAT 92–99
[2016-10-25] MEDS: Sodium Chloride LOK Flush 10 mL Syringe IVFLUSH SCH ×3 (00:30→17:03)
[2016-10-25] MEDS: MethylprednisoLONE Sodium Succinate 40 mg/mL Inj IVPUSH SCH ×3 (00:49→17:02)
[2016-10-25] MEDS: Piperacillin-Tazo 3.375 Gm Inj 3.375 GM in Dextrose 5% Minibag Plus 50 ML IV SCH ×3 (03:50→20:07)
--- NOTE | 2016-10-25 05:36 | NUR ---
Pt afebrile this shift, VSS. Reported some anxiety in the evening, appeared restless in bed and described racing thoughts. Hydrocodone given for 8/10 headache pain, pt slept soundly until 0300. Sinus tach 90's-110's, occasional PVCs. Maintains 91% on 2L NC while awake, CPAP applied by RT while asleep. A/Ox3 although occasionally forgetful. Pleasant and compliant with care. Care continues.
[2016-10-25] MEDS: Pantoprazole 40 mg ER24 Tablet PO SCH (05:59)
[2016-10-25 06:06] LABS: BASOPHILS % (AUTO) 0.2 % (0-3); EOSINOPHILS % (AUTO) 0 % (0-5); MONOCYTES % (AUTO) 2.1 % (4-12); Mean Corpuscular Hemoglobin 27.6 pg (27.0-35.0); Mean Corpuscular Volume 88.6 fL (81-100); NEUTROPHILS % (AUTO) 92.2 % (40-74); Platelet Count 210 bil/L (150-400)
[2016-10-25] MEDS: Dorzolamide 2% 10 mL Ophthalmic Solution RIGHT_EYE SCH (08:30)
[2016-10-25] MEDS: Tiotropium 18mcg/Cap 5 Capsule Inhaler Kit INHALATION SCH (08:30)
[2016-10-25] MEDS: Arformoterol 15 mCg/2 mL Inhalation Solution NEB SCH ×2 (09:45→21:54)
[2016-10-25] MEDS ORDERED: Glucose 40% Oral Gel 15 Gm Tube PO PRN (10:55)
[2016-10-25] MEDS: ALPRAZolam 0.5 mg Tablet PO PRN ×2 (11:10→23:37)
--- NOTE | 2016-10-25 12:43 | PCM.PNMED ---
Subjective Date of Service Oct 25, 2016 Subjective She is doing well. She still has some dysuria but no hematuria. No fevers or chills. She is somewhat weak. She is also somewhat short of breath with wheezing. She denies any chest pain, palpitations, nausea, or vomiting. No overnight events noted Exam Vital Signs Vital Sign - Last Date Time Temp Pulse Resp B/P Pulse Ox O2 Delivery O2 Flow Rate FiO2 10/25/16 12:14 36.7 71 13 102/48 92 Room Air 10/25/16 03:39 2.00 10/25/16 00:43 30 Intake and Output 10/24/16 10/24/16 10/25/16 Cumulative From/Thru 15:00 23:00 07:00 10/23/16 13:05 - 10/25/16 05:15 Intake Total 847 ml 686 ml 323 ml 4019 ml Output Total 1500 ml 625 ml 3225 ml Balance 847 ml -814 ml -302 ml 794 ml Intake Oral 686 ml 200 ml 1972 ml IV Total 847 ml 123 ml 2047 ml Output Urine Total 1500 ml 625 ml 3225 ml # Bowel Movements 0 0 Exam Alert and oriented -3, no distress. Fluent speech Anicteric sclera. Lungs are clear with normal rate and effort, some expiratory wheezing. Heart is regular without murmur gallop or rub Abdomen soft nontender, flat Extremities are free of edema. Skin is free of rash or lesions. IVs and Medications Medications Reviewed: Medications were reviewed in detail Lab and Diagnostics Result Diagram: 10/25/16 0535 10/25/16 0535 X-Rays, CTs and MRIs Chest x-ray IMPRESSION: Small right pleural effusion or pleural scarring. Dictated by: Dara Nuno M.D. on 10/23/2016 at 12:[address] Right perinephric stranding, although unclear etiology. Recommend correlation with urinalysis. Theoretically a recently passed right sided calculus is in the differential. No hydronephrosis. Normal appendix. Left renal cysts. Small hiatal hernia. Dictated by: Keon Trujillo M.D. on 10/23/2016 at 15:21 Assessment & Plan Ashley Cruz is a 71 year old woman with past medical history of hypertension, COPD, A fib on Xarelto, anxiety and depression who presented to the [facility] ED via EMS due to severe dysuria for one week. Sepsis, secondary to pyelonephritis; present admission; ongoing and improving -Patient admitted in July with sepsis due to pyelonephritis -Patient febrile with leukocytosis of 22 > 24 -Urine culture pending -Blood cultures ordered and pending -1 L normal saline in ED second liter on floor; maintain at 125 mL/hour overnight -Lactic acid normal - CT abd/pelvis completed, no signs of abscess or hydronephrosis Acute kidney injury secondary to sepsis; present missing; active and improving -Creatinine at baseline 0.66 and currently 1.24 on admission, will continue to monitor -Ratio and history does not support prerenal -Patient given 1 L NS in ED, continue maintenance -Treat sepsis as above COPD, without evidence of exacerbation; present on admission; stable -Pt needed O2 initially in ED; resolved once she stopped exerting herself -Continue home inhalers -Continue patient on O2 as needed -Patient on home O2 at night and with exertion Cough and URI symptoms, POA. Active. We will send a dull respiratory PCR. Atrial fibrillation with RVR s/p reported ablation; present on admission; ongoing -Likely due to stress of sepsis -Continue home Flecainide, Bisoprolol and Xarelto -Cardizem PRN Hyperglycemia; present on admission; ongoing and active. -BG 135 on admit -no reported hx of diabetes -A1c ordered -Will follow, will add correctional lispro. Anxiety and depression -Continue home medications, patient is very concerned about receiving these on time. Chronic microcytic anemia -Continue to monitor -Patient following up with Dr. Thompson for colonoscopy Hypertension, POA and stable -Continue home medications Dyslipidemia, POA and stable, POA and stable -Continue home statin Gastroesophageal reflux disease -Continue home PPI Glaucoma, POA and stable -Continue home eye drops Disposition: Patient is being admitted to inpatient status with expected length of stay greater than two midnights due to to severity of presentation, duration of treatment, and risks of adverse events disposition Full code VTE Mechanical Devices: Venous Foot Pump Resuscitation Status: CPR: Attempt Resuscitation Kelby Jacobo MD Oct 25, 2016 12:43
[2016-10-25] MEDS: Insulin LISPRO 300 Unit/3 mL Inj SUBQ SCH ×3 (13:31→22:29)
[2016-10-25] MEDS: HYDROcodone-APAP 7.5-325 mg Tablet PO PRN ×2 (14:05→20:11)
[2016-10-25] MEDS: Nystatin 100,000 Unit/Gm 15 Gm Powder TOPICAL SCH ×2 (17:03→20:29)
--- NOTE | 2016-10-25 18:29 | NUR ---
Respirations/Anxiety/Blood Sugar Pt. has been RA throughout shift and sats at 92%. At times Pts. SpO2 drops as low as 85%-86% with activity and Pt. states feeling "normal", although slight heavy breathing is noted. Pt. denies SOB as well. Pt. did have anxiety this morning and requested anti-anxiety medication. After reassessment Pt. states she no longer has anxiety. Pts. blood sugar has been increasing through out shift with morning blood sugar being 170, noon was 282, and dinner 322. was made aware. Will continue to monitor.
[2016-10-25] MEDS: DULoxetine 30 mg DR Capsule PO SCH (20:11)
[2016-10-26] MEDS: Sodium Chloride LOK Flush 10 mL Syringe IVFLUSH SCH ×2 (00:30→08:39)
[2016-10-26] MEDS: MethylprednisoLONE Sodium Succinate 40 mg/mL Inj IVPUSH SCH ×2 (00:48→08:37)
[2016-10-26 04:08] VITALS: BP 157/64; PULSE 87; RESP 25; O2SAT 95
[2016-10-26] MEDS: Piperacillin-Tazo 3.375 Gm Inj 3.375 GM in Dextrose 5% Minibag Plus 50 ML IV SCH (04:17)
[2016-10-26 04:28] VITALS: PULSE 73
[2016-10-26] MEDS: Pantoprazole 40 mg ER24 Tablet PO SCH (05:29)
--- NOTE | 2016-10-26 05:56 | NUR ---
Resp/BG Pt refused CPAP this shift, maintains 93% on room air. 2L NC applied at bedtime, sats low 90's. Correctional insulin given as ordered, BG 198 this AM. Denies frequency/dysuria, 1075 clear yellow urine voided this shift. Pt reports an intermittent dry cough that started after dinner, but believes it's related to putting too much pepper on her food, stating "I know what aspiration feels like and this is not it." LS unchanged w reassessment. Care continues.
[2016-10-26 07:44] VITALS: PULSE 83
[2016-10-26 08:00] VITALS: PULSE 121; RESP 16; O2SAT 94
[2016-10-26] MEDS: Arformoterol 15 mCg/2 mL Inhalation Solution NEB SCH (08:00)
[2016-10-26 08:30] VITALS: BP 182/86; PULSE 91; RESP 18; O2SAT 96
[2016-10-26] MEDS: Tiotropium 18mcg/Cap 5 Capsule Inhaler Kit INHALATION SCH (08:30)
[2016-10-26] MEDS: HYDROcodone-APAP 7.5-325 mg Tablet PO PRN (08:38)
[2016-10-26] MEDS: Nystatin 100,000 Unit/Gm 15 Gm Powder TOPICAL SCH (08:41)
[2016-10-26] MEDS: Dorzolamide 2% 10 mL Ophthalmic Solution RIGHT_EYE SCH (08:42)
[2016-10-26] MEDS: Insulin LISPRO 300 Unit/3 mL Inj SUBQ SCH ×2 (08:46→12:53)
[2016-10-26] MEDS: ALPRAZolam 0.5 mg Tablet PO PRN (11:13)
--- NOTE | 2016-10-26 11:26 | PCM.DIMED ---
Discharge Instructions Date of Service Oct 26, 2016 Dates of Hospitalization Oct 23, 2016 at 15:30 Discharge Diagnosis Discharge Diagnosis Sepsis, secondary to pyelonephritis, improved. E.coli bacteremia, improved. Acute kidney injury secondary to sepsis, improved. COPD, stable. Paroxysmal Atrial fibrillation with RVR , resolved Hyperglycemia; present on admission, improved. Anxiety and depression, stable. Chronic microcytic anemia Hypertension, stable Dyslipidemia, stable Gastroesophageal reflux disease, stable Glaucoma, stable Call your provider Call your provider for: Fever or Chills Patient Instructions Patient Instructions Dr Hernandez in resident's clinic in one week. We will check a repeat complete blood count and BMP Follow-up with PCP in: 1 week Kelby Jacobo MD Oct 26, 2016 11:26
[2016-10-26] MEDS ORDERED: AMOX-366 PO (11:27)
[2016-10-26] MEDS ORDERED: FLUC150T3 PO (11:28)
--- NOTE | 2016-10-26 13:12 | NUR ---
Evaluation completed. Please go to "Notes" then click on "Assessments and Notes" (bottom left corner of screen). Then select appropriate discipline tab on top of screen.
--- NOTE | 2016-10-26 13:43 | NUR ---
Set up appointment at [facility] with per COTTON BAG SEWER, for October 31 at 2:50 pm with a 2:35 check-in time. updated COT[employer] BAG SEWER.
--- NOTE | 2016-10-26 14:21 | NUR ---
Discharge Pt educated on diagnosis, new medications, and future care. Prescriptions given. IV removed. Telemetry leads removed. Pt and RN signed last page of discharge packet. Pt and family member demonstrated understanding of all teaching. Pt escorted down to vehicle by staff member.
--- NOTE | 2016-10-26 16:04 | NUR ---
Social Work Note: Discharge Data& Assessment: EMR reviewed. Per MD pt is medically ready to discharge home via POV. Ashley Cruz is a 71 year old female admitted on 10/23/2016 for sepsis. Per MD pt is medically improved and ready to discharge home via POV. Pt cleared by PT to return home with outpt PT. No other MD orders identified. No other pt needs identified. Plan: Per pt is medically ready to discharge home via POV. No other MD orders identified. No other pt needs identified. All updated and agreeable to plan. LESLIE Olivas
--- NOTE | 2016-10-27 09:12 | PCM.DC.MED ---
Discharge Summary Date of Service Oct 26, 2016 Dates of Hospitalization Date of Hospital Admission Oct 23, 2016 at 15:30 Date of Discharge: Oct 26, 2016 Providers: Admitting Physician: Samuel Red MD Primary Care Physician: Vikki Attending Physician: Kelby Pineda MD Diagnosis at Time of Discharge Diagnosis at Time of Discharge Sepsis, secondary to pyelonephritis, improved. E.coli bacteremia, improved. Acute kidney injury secondary to sepsis, improved. COPD, stable. Paroxysmal Atrial fibrillation with RVR , resolved Hyperglycemia; present on admission, improved. Anxiety and depression, stable. Chronic microcytic anemia Hypertension, stable Dyslipidemia, stable Gastroesophageal reflux disease, stable Glaucoma, stable Consultations None Procedures XRay, CTs & MRIs Chest x-ray IMPRESSION: Small right pleural effusion or pleural scarring. Dictated by: Dara Nuno M.D. on 10/23/2016 at 12:[address] Right perinephric stranding, although unclear etiology. Recommend correlation with urinalysis. Theoretically a recently passed right sided calculus is in the differential. No hydronephrosis. Normal appendix. Left renal cysts. Small hiatal hernia. Dictated by: Keon Trujillo M.D. on 10/23/2016 at 15:21 Invasive Procedures None Brief History 71-year-old female with a history of COPD and asthma, hypertension, A. fib S/P ablation on Xarelto, with admission in July for pyelonephritis presented to [facility] due to 1 week of suprapubic and left flank pain with dysuria. Patient states that one week ago she started noticing suprapubic tenderness and left flank pain that is continued to worsen over the last week. She complains of burning on urination, urinary urgency, incomplete voiding, fevers, and chills. On last admission the patient was treated with Zosyn for 5 days and then discharged home on Augmentin. She states she has been asymptomatic since that time. Patient denies chest pain, shortness breath, headache, nausea, vomiting, or changes in stool. In emergency department the patient was given Zosyn and 1 L of normal saline. Patient had a leukocytosis 91% neutrophils, and a small bump in her creatinine to 1.24, normal baseline of 0.66. Patient's UA revealed positive for nitrite, leukocyte esterase, and bacteria and was sent for culture. EKG in the emergency department revealed tachycardia of 108 with what appears to be sinus rhythm. Patient was also desaturating on first presentation, which she says is normal due to her severe COPD. She was placed on 2 L oxygen and her saturation went from high 70s to the low 90s Hospital Course Ashley Cruz is a 71 year old woman with past medical history of hypertension, COPD, A fib on Xarelto, anxiety and depression who presented to the [facility] ED via EMS due to severe dysuria for one week. Sepsis, secondary to pyelonephritis; present admission; ongoing and improving -Patient admitted in July with sepsis due to pyelonephritis -Patient febrile with leukocytosis of 22 > 24 -Urine culture pending -Blood cultures ordered and pending -1 L normal saline in ED second liter on floor; maintain at 125 mL/hour overnight -Lactic acid normal - CT abd/pelvis completed, no signs of abscess or hydronephrosis She improved with IV antibiotics. Escherichia coli bacteremia, likely present on admission. Improved. This also continued to improve with IV antibiotics. Acute kidney injury secondary to sepsis; present missing; active and improving -Creatinine at baseline 0.66 and currently 1.24 on admission, will continue to monitor -Ratio and history does not support prerenal -Patient given 1 L NS in ED, continue maintenance -Treat sepsis as above Improved with fluid resuscitation. COPD, without evidence of exacerbation; present on admission; stable -Pt needed O2 initially in ED; resolved once she stopped exerting herself -Continue home inhalers -Continue patient on O2 as needed -Patient on home O2 at night and with exertion This remained stable throughout hospitalization. Cough and URI symptoms, POA. Active. Unsuccessful in obtaining a respiratory PCR. These symptoms improved. Atrial fibrillation with RVR s/p reported ablation; present on admission, resolved. -Likely due to stress of sepsis -Continue home Flecainide, Bisoprolol and Xarelto -Cardizem PRN She did have a conversion to sinus rhythm on the hospital. She did require Cardizem for rate control initially. Hyperglycemia; present on admission; ongoing and active. -BG 135 on admit -no reported hx of diabetes -A1c ordered -Will follow, will add correctional lispro. Anxiety and depression -Continue home medications, patient is very concerned about receiving these on time. Chronic microcytic anemia -Continue to monitor -Patient following up with Dr. Thompson for colonoscopy Hypertension, POA and stable -Continue home medications Dyslipidemia, POA and stable, POA and stable -Continue home statin Gastroesophageal reflux disease -Continue home PPI Glaucoma, POA and stable -Continue home eye drops She is felt stable for discharge on October 26 she did well physical therapy was able to ambulate with good safety. Exam Vital Signs (Last) Date Time Temp Pulse Resp B/P Pulse Ox O2 Delivery O2 Flow Rate FiO2 10/26/16 09:30 Supplement Oxygen 10/26/16 08:30 36.5 91 18 182/86 96 10/25/16 03:39 2.00 10/25/16 00:43 30 Exam Patient was seen and examined on the day of discharge Test 10/23/16 13:00 10/23/16 13:35 10/23/16 16:27 10/23/16 20:25 Urine Color Yellow (YELLOW) Urine Appearance Hazy (CLEAR,HAZY) Urine pH 6.0 (5.0-8.0) Urine Specific [place] 1.015 (1.003-1.035) Urine Protein 100mg/dL (NEG,TRACE) Urine Glucose (UA) Negativemg/dL (NEGATIVE) Urine Ketones Negativemg/dL (NEGATIVE) Urine Occult Blood Moderate (NEGATIVE) Urine Nitrite Positive (NEGATIVE) Urine Bilirubin Negative (NEGATIVE) Urine Urobilinogen Normalmg/dL (NORMAL) Urine Leukocyte Esterase Small (NEGATIVE) Urine RBC 11-50/hpf (0-2) Urine WBC 11-50/hpf (0-5) Urine Epithelial Cells Occasional/hpf (NONE-MOD) Urine Crystals None seen (NONE SEEN) Urine Bacteria Many/hpf (NONE-FEW) Urine Hyaline Casts None/lpf (NONE) Urine Granular Casts None seen (NONE SEEN) Urine Waxy Casts None seen (NONE SEEN) Urine Red Blood Cell Casts None seen (NONE SEEN) Urine White Blood Cell Casts None seen (NONE SEEN) Urine Mucus None seen (None Seen) Urine Trichomonas None seen (NONE SEEN) Urine Yeast None (NONE SEEN) Urinalysis Comment None Urine Culture Reflexed Indicated Hold Urine Received (Received) Erythrocyte Sedimentation Rate 25mm/hr (0-40) Magnesium Level 1.4mg/dL (1.6-2.6) Total Bilirubin 0.6mg/dL (0.0-1.2) Aspartate Amino Transf (AST/SGOT) 15U/L (0-50) Alanine Aminotransferase (ALT/SGPT) 6U/L (0-32) Alkaline Phosphatase 83U/L (25-165) Total Protein 6.5g/dL (6.4-8.4) Albumin 3.7g/dL (3.4-5.0) Hemoglobin A1c 5.6% (4.8-5.6) Lactic Acid Level 1.2mmol/L (0.4-2.0) Test 10/24/16 16:44 10/25/16 05:35 D-Dimer 1.95mg/L FEU (<0.50) Troponin T < 0.010ug/L (0.0-0.011) White Blood Count 12.7th/mm3 (3.8-10.1) Red Blood Count 4.13mil/mm3 (3.90-5.20) Hemoglobin 11.4g/dL (12.0-15.6) Hematocrit 36.6% (35.0-46.0) Mean Corpuscular Volume 88.6fL (81-100) Mean Corpuscular Hemoglobin 27.6pg (27.0-35.0) Mean Corpuscular Hemoglobin Concent 31.1% (32.0-37.0) Red Cell Distribution Width 18.8% (12.3-15.4) Platelet Count 210bil/L (150-400) Neutrophils (%) (Auto) 92.2% (40-74) Lymphocytes (%) (Auto) 5.0% (14-46) Monocytes (%) (Auto) 2.1% (4-12) Eosinophils (%) (Auto) 0% (0-5) Basophils (%) (Auto) 0.2% (0-3) Sodium Level 135mEq/L (134-144) Potassium Level 3.9mEq/L (3.5-5.2) Chloride Level 96mEq/L (97-108) Carbon Dioxide Level 28mmol/L (18-29) Blood Urea Nitrogen 18mg/dL (8-27) Creatinine 1.13mg/dL (0.57-1.00) Estimat Glomerular Filtration Rate 68mL/min (>59) Glucose Level 213mg/dL (60-99) Calcium Level 8.5mg/dL (8.5-10.1) Procalcitonin 5.12ng/mL (0.00-0.08) Discharge Medications Discharge Medications Amoxicillin/Clav K 875-125 mg (Augmentin 875-125 mg) 1 Each Tablet 1 TABLET PO BID Prescribed by: KELBY PINEDA MD Ascorbic Acid (Vitamin C) 250 Mg Tab.chew 500 MG PO DAILY (Reported) Bimatoprost (Lumigan) 45 Drop/2.5 Ml Ophsoln 1 DROP BOTH_EYES HS (Reported) Bisoprolol Fumarate (Bisoprolol Fumarate) 5 Mg Tablet 2.5 MG PO QPM (Reported) Brinzolamide (Azopt 1% Ophthalmic Suspension) 10 Ml Drops.susp 1 GTT RIGHT_EYE QAM (Reported) Cholecalciferol (Vitamin D3) (Vitamin D3) 1,000 Unit Tab.chew 1,000 UNIT PO DAILY (Reported) Dicyclomine (Dicyclomine) 10 Mg Capsule 10 MG PO QPM (Reported) Duloxetine (Duloxetine) 60 Mg Capsule.dr 60 MG PO QPM (Reported) Estradiol (Estradiol) 1 Mg Tablet 1 MG PO QAM (Reported) Ferrous Sulfate (Ferrous Sulfate) 324 Mg Tablet.dr 324 MG PO DAILY (Reported) Flecainide Acetate (Flecainide Acetate) 50 Mg Tablet 50 MG PO BID (Reported) Fluconazole (Fluconazole) 150 Mg Tablet 150 MG PO ONCE Prescribed by: KELBY PNIEDA MD Hydrochlorothiazide (Hydrochlorothiazide) 12.5 Mg Capsule 12.5 MG PO QAM ( Reported) Omeprazole (Omeprazole) 40 Mg Capsule.dr 40 MG PO QAM (Reported) Pediatric Multivit Comb No.29 (Gummies Girls' Multivitamins) 1 Each Tab.chew 2 EACH PO DAILY (Reported) Ranitidine (Ranitidine) 300 Mg Tablet 300 MG PO QPM (Reported) Rivaroxaban (Xarelto) 20 Mg Tablet 20 MG PO QPM (Reported) Trazodone (Trazodone) 100 Mg Tablet 100 MG PO HS (Reported) Umeclidinium Brm/Vilanterol Tr (Anoro Ellipta 62.5-25 Mcg INH) 1 Each Disk.w.dev 1 EACH IH DAILY (Reported) l Acidophil/B Lactis/B Longum (Florajen3 Capsule) 460 Mg Capsule 460 MG PO QAM ( Reported) As needed Albuterol HFA (Proair HFA) 8.5 Gm Hfa.aer.ad 2 PUFFS INHALATION Q4H PRN PRN For Shortness of Breath (Reported) Alprazolam (Alprazolam) 0.5 Mg Tablet 0.5 MG PO TID PRN PRN anx (Reported) Hydrocodone-Acetaminophen 7.5-325 mg (Hydrocodone-Acetaminophen 7.5-325 mg) 1 Each Tablet 1 EACH PO QID PRN PRN For Pain (Reported) Ipratropium/Albuterol Sulfate (Iprat-Albut 0.5-3(2.5) mg/3 mL Inhalant Soln) 3 Ml Ampul.neb 3 ML INHALATION QID PRN PRN For Shortness of Breath (Reported) Followup Plan Disposition: Home Patient Instructions Dr Hernandez in resident's clinic in one week. We will check a repeat complete blood count and BMP Follow-up with PCP in: 1 week Time spent 40 min Kelby Pineda MD Oct 27, 2016 09:12
== END 2016-10-26 14:09 | disposition home or self-care (01) | DRG 872 ==
LOC: EDUNIT# 12:35 → SED 12:35 → EDBD 12:35 → MOC 15:30 → MPC 15:32 → PCC 10-24 18:31
PROVIDERS: ADMIT Internal Medicine; ATTEND Hospitalist
PROC: 4A033R1 Measurement of Arterial Saturation, Peripheral, Percutaneous Approach (ICD-10-PCS; principal; 2016-10-24)
PROC: 3E0D7RZ Introduction of Antiarrhythmic into Mouth and Pharynx, Via Natural or Artificial Opening (ICD-10-PCS; 2016-10-26)
DX: A41.51 Sepsis due to Escherichia coli [E. coli] (principal); N12 Tubulo-interstitial nephritis, not specified as acute or chronic; N17.9 Acute kidney failure, unspecified; I48.92 Unspecified atrial flutter; J44.9 Chronic obstructive pulmonary disease, unspecified; E78.5 Hyperlipidemia, unspecified; I10 Essential (primary) hypertension; F41.8 Other specified anxiety disorders; D50.9 Iron deficiency anemia, unspecified; K58.9 Irritable bowel syndrome, unspecified; H40.9 Unspecified glaucoma; R73.9 Hyperglycemia, unspecified; Z87.891 Personal history of nicotine dependence; Z79.01 Long term (current) use of anticoagulants

== ENCOUNTER 2016-11-20 18:10 | Emergency (ER) | payer MEDICARE ==
[~2016-11-20] VITALS: Ht 154.9 cm; Wt 90.5 kg
[~2016-11-20 18:10] MED LIST changes: +ASCO250T7 PO; +BRIN10DR RIGHT_EYE; +CHOL10008 PO; -FEG324 PO; +FERR324T2 PO; +FLUC150T3 PO; -MULTIVITAMIN PO; +PEDI1TAB PO; -SYMINH INHALATION; -TIMO5DRO26 RIGHT_EYE; +UMEC1DIS IH; -VITAMIN C GUMMIES PO; -VITAMIN D GUMMIES PO
[2016-11-20 18:12] VITALS: BP 161/81; PULSE 83; RESP 16; O2SAT 95
[2016-11-20 20:00] LABS: APPEARANCE,URINE CLOUDY (CLEAR,HAZY); COLOR,URINE YELLOW (YELLOW); OCCULT BLOOD,URINE MODERATE (NEGATIVE); UROBILINOGEN,URINE NORMAL (NORMAL)
--- NOTE | 2016-11-20 20:51 | ED.REPORT ---
HPI-Abd Pain F 40 and Over Date of Service Nov 20, 2016 ED Provider: Agustin Sapp MD The pt is a 71 y/o female with a hx of HTN, COPD, asthma, acute renal failure, and aflutter on Xarelto who presents to the ED complaining of dysuria, onset 2 days ago. Today, she experienced pain even at rest. Associated sx include low back pain and right lower quadrant tenderness. She denies fever, vomiting, and change in appetite or fluid intake. The pt was admitted to the hospital on 10/23 for similar sx. At that time, her urine and blood showed E-coli, which was sensitive to Augmenting and resistant to quinolone and Bactrim. She was discharged with antibiotics 4 days later. She completed the antibiotic course 2 weeks ago. A retroperitoneal ultrasound done on 07/28/16 showed no hydronephrosis or nephrolithiasis. No suspicious solid mass lesions. There is a simple left renal cyst which measures 1.8 cm in diameter. An abdominal ultrasound on 10/23/16 showed fatty infiltration of the liver, Cholelithiasis, and left kidney cysts. Nursing Notes Stated Complaint: UTI Chief Complaint: Female Abdominal Pain Nursing Notes Reviewed: Yes Allergies: Coded Allergies: clarithromycin (Verified Allergy, Severe, HIVES, 07/25/16) ceftriaxone (Verified Allergy, Intermediate, Rash, itching, hot flash, 07/25) codeine (Verified Adverse Reaction, Intermediate, Hallucinations, 07/25/16) makes patient confused oxycodone (Verified Adverse Reaction, Intermediate, CONFUSION, 07/25/16) prednisone (Verified Adverse Reaction, Intermediate, States is can cause a -fib, 07/25/16) Received doses on last admit Scheduled Amoxicillin/Clav K 875-125 mg (Augmentin 875-125 mg) 1 Each Tablet 1 TABLET PO BID Amoxicillin/Clav K 875-125 mg (Augmentin 875-125 mg) 1 Each Tablet 1 TABLET PO BID Ascorbic Acid (Vitamin C) 250 Mg Tab.chew 500 MG PO DAILY Bimatoprost (Lumigan) 45 Drop/2.5 Ml Ophsoln 1 DROP BOTH_EYES HS Bisoprolol Fumarate (Bisoprolol Fumarate) 5 Mg Tablet 2.5 MG PO QPM Brinzolamide (Azopt 1% Ophthalmic Suspension) 10 Ml Drops.susp 1 GTT RIGHT_EYE QAM Cholecalciferol (Vitamin D3) (Vitamin D3) 1,000 Unit Tab.chew 1,000 UNIT PO DAILY Dicyclomine (Dicyclomine) 10 Mg Capsule 10 MG PO QPM Duloxetine (Duloxetine) 60 Mg Capsule.dr 60 MG PO QPM Estradiol (Estradiol) 1 Mg Tablet 1 MG PO QAM Ferrous Sulfate (Ferrous Sulfate) 324 Mg Tablet.dr 324 MG PO DAILY Flecainide Acetate (Flecainide Acetate) 50 Mg Tablet 50 MG PO BID Fluconazole (Fluconazole) 150 Mg Tablet 150 MG PO ONCE Hydrochlorothiazide (Hydrochlorothiazide) 12.5 Mg Capsule 12.5 MG PO QAM Omeprazole (Omeprazole) 40 Mg Capsule.dr 40 MG PO QAM Pediatric Multivit Comb No.29 (Gummies Girls' Multivitamins) 1 Each Tab.chew 2 EACH PO DAILY Ranitidine (Ranitidine) 300 Mg Tablet 300 MG PO QPM Rivaroxaban (Xarelto) 20 Mg Tablet 20 MG PO QPM Trazodone (Trazodone) 100 Mg Tablet 100 MG PO HS Umeclidinium Brm/Vilanterol Tr (Anoro Ellipta 62.5-25 Mcg INH) 1 Each Disk.w.dev 1 EACH IH DAILY l Acidophil/B Lactis/B Longum (Florajen3 Capsule) 460 Mg Capsule 460 MG PO QAM Scheduled PRN Albuterol HFA (Proair HFA) 8.5 Gm Hfa.aer.ad 2 PUFFS INHALATION Q4H PRN PRN For Shortness of Breath Alprazolam (Alprazolam) 0.5 Mg Tablet 0.5 MG PO TID PRN PRN anx Hydrocodone-Acetaminophen 7.5-325 mg (Hydrocodone-Acetaminophen 7.5-325 mg) 1 Each Tablet 1 EACH PO QID PRN PRN For Pain Ipratropium/Albuterol Sulfate (Iprat-Albut 0.5-3(2.5) mg/3 mL Inhalant Soln) 3 Ml Ampul.neb 3 ML INHALATION QID PRN PRN For Shortness of Breath General Time Seen by MD: 20:15 Chief Complaint Dysuria Hx Obtained From: Patient Arrived By: Walk-in Sudden in Onset?: Yes Onset Occurred: 2 days ago Symptom Duration: Since onset Location: : Back: RLQ Quality: Painful Severity: Current: Mild Severity: Maximum: Moderate Recent Healthcare: Recent doctor visit, Recent hospitalization Similar Sx Previous: Yes Past Medical History Past Medical History Notes: Admitted to the hospital on 10/23/16 for UTI. Urine and blood showed E-coli - sensitive to Augmenting and resistant to quinolone and Bactrim. A retroperitoneal ultrasound done on 07/28/16 showed no hydronephrosis or nephrolithiasis. No suspicious solid mass lesions. There is a simple left renal cyst which measures 1.8 cm in diameter. An abdominal ultrasound on 10/23/16 showed fatty infiltration of the liver, Cholelithiasis, and left kidney cysts. Past Medical History 1. Severe COPD, requiring nocturnal O2. 2. Prior admissions for sepsis associated with community-acquired pneumonia (most recently January 11, 2013). 3. Hypertension. 4. Dyslipidemia. 5. Gastroesophageal reflux disease. 6. Irritable bowel syndrome. 7. Glaucoma. 8. Anxiety and depression. 9. Iron deficiency anemia. TSI 10, TIBC 322, 3% saturation, ferritin 65, B12 1469 (03/13/2013). Venofer 300 mg IV was given on 03/14/2013 and on 03/16/2013. The patient will need outpatient colonoscopy, and referral was make to Dr. Thompson for colonoscopy in the future 10. Atrial flutter with fast ventricular response. ECG (03/15/2013) confirmed atrial flutter with variable block. Several doses of Cardizem IV push were given; the patient continued to go in and out of atrial flutter. This resolved after initiation of Toprol XL 50 mg daily given at noon. Echocardiogram (03/16/2013) showed LVEF 65-70% without segmental wall motion. CHADS2 score is 1; no systemic anticoagulation initiated this admission. 11. History of acute renal failure possible secondary to acute interstitial nephritis that required short term dialysis Reports: Asthma Past Surgical History Kidney biopsy Stomach sleeve Reports: Cataract surgery, Hysterectomy Reports: Back/neck surgery, Knee replacement Smoking History Former Smoker Social History Other Social History: Good social support, , Local resident Ambulatory Status Independent Review of Systems Denies: change in appetite and fluid intake Constitutional: Denies: Fever Female: Reports: Dysuria Musculoskeletal: Reports: Back pain Complete sys rev & neg: except as marked. Physical Exam Vital Signs Vital Signs (First) Date Time Temp Pulse Resp B/P Pulse Ox O2 Delivery O2 Flow Rate FiO2 11/20/16 18:12 36.9 83 16 161/81 95 Room Air Initial VS: Reviewed Head / Eyes: Atraumatic, Normocephalic Neck: Supple, Non-tender, Full range of motion Extremities: Vascular intact, Neuro intact, No swelling, No tenderness Skin: Warm, Dry, No cyanosis Neurologic: Alert, Oriented, Nonfocal General/Constitutional: Awake, Alert, No acute distress, Well appearing, Cooperative Respiratory / Chest: Atraumatic, Breath sounds NL, Breath sounds = bilat, No respiratory distress, No rales, No rhonchi, No wheezing Cardiovascular: Heart rate NL, Regular rhythm, Heart sounds NL, No gallop, No murmurs, No rubs Abdomen: Atraumatic, Soft, No guarding, No rebound, BS normoactive Tenderness/Guarding/Rebound: Positive: Tender RLQ... Back: Atraumatic, Full range of motion Right CVA tenderness Interpretation & Diagnostics Lab Results Interpretation Result Diagram: 11/20/16212011/20/162120 Test 11/20/16 19:44 11/20/16 21:21 Urine Color Yellow (YELLOW) Urine Appearance Cloudy (CLEAR,HAZY) Urine pH 6.0 (5.0-8.0) Urine Specific [place] 1.005 (1.003-1.035) Urine Protein Tracemg/dL (NEG,TRACE) Urine Glucose (UA) Negativemg/dL (NEGATIVE) Urine Ketones Negativemg/dL (NEGATIVE) Urine Occult Blood Moderate (NEGATIVE) Urine Nitrite Negative (NEGATIVE) Urine Bilirubin Negative (NEGATIVE) Urine Urobilinogen Normalmg/dL (NORMAL) Urine Leukocyte Esterase Large (NEGATIVE) Urine RBC 3-10/hpf (0-2) Urine WBC 11-50/hpf (0-5) Urine Epithelial Cells Few/hpf (NONE-MOD) Urine Crystals None seen (NONE SEEN) Urine Bacteria Many/hpf (NONE-FEW) Urine Hyaline Casts None/lpf (NONE) Urine Granular Casts None seen (NONE SEEN) Urine Waxy Casts None seen (NONE SEEN) Urine Red Blood Cell Casts None seen (NONE SEEN) Urine White Blood Cell Casts None seen (NONE SEEN) Urine Mucus None seen (None Seen) Urine Trichomonas None seen (NONE SEEN) Urine Yeast None (NONE SEEN) Urinalysis Comment None Urine Culture Reflexed Indicated White Blood Count 10.0th/mm3 (3.8-10.1) Red Blood Count 4.62mil/mm3 (3.90-5.20) Hemoglobin 13.1g/dL (12.0-15.6) Hematocrit 41.8% (35.0-46.0) Mean Corpuscular Volume 90.5fL (81-100) Mean Corpuscular Hemoglobin 28.4pg (27.0-35.0) Mean Corpuscular Hemoglobin Concent 31.3% (32.0-37.0) Red Cell Distribution Width 15.6% (12.3-15.4) Platelet Count 272bil/L (150-400) Neutrophils (%) (Auto) 51.9% (40-74) Lymphocytes (%) (Auto) 34.1% (14-46) Monocytes (%) (Auto) 8.2% (4-12) Eosinophils (%) (Auto) 5.1% (0-5) Basophils (%) (Auto) 0.4% (0-3) Sodium Level 139mEq/L (134-144) Potassium Level 3.7mEq/L (3.5-5.2) Chloride Level 96mEq/L (97-108) Carbon Dioxide Level 29mmol/L (18-29) Blood Urea Nitrogen 14mg/dL (8-27) Creatinine 0.87mg/dL (0.57-1.00) Estimat Glomerular Filtration Rate 92mL/min (>59) Glucose Level 91mg/dL (60-99) Lactic Acid Level 1.2mmol/L (0.4-2.0) Calcium Level 9.9mg/dL (8.5-10.1) Total Bilirubin 0.2mg/dL (0.0-1.2) Aspartate Amino Transf (AST/SGOT) 17U/L (0-50) Alanine Aminotransferase (ALT/SGPT) 8U/L (0-32) Alkaline Phosphatase 75U/L (25-165) Total Protein 8.0g/dL (6.4-8.4) Albumin 4.0g/dL (3.4-5.0) Re-Eval/Medical Decision Med Decision/Clinical Course Recent Escherichia coli sepsis from urinary tract infection. Imaging of the urinary tract did not reveal obstruction or significant post void residual. Recent abdominal ultrasound suggestive of gallstone disease and by imaging possibly even cholecystitis however he clearly has urinary symptoms today, no transaminases or alkaline phosphatase abnormalities and no leukocytosis. We will put her back on Augmentin, she was given a dose of Zosyn in the emergency department. Note she is allergic to cephalosporins and quinolones, also the coli that grew out of her urine earlier in the month was resistant to quinolones. Source of Hx: Old records Re-Evaluation/Progress : Time of Eval: 20:57 Re-Evaluation/Progress Note: Rechecked pt. Discussed diagnosis and plan to discharge based on lab results. The pt understands. All questions answered. Counseled Regarding: Diagnosis, Lab results Discharge & Departure Primary Impression: UTI (urinary tract infection) Urinary tract infection type: site unspecified Hematuria presence: without hematuria Qualified Code: N39.0 - Urinary tract infection, site not specified Disposition: Home Discharge Condition All VS Reviewed: Yes Condition: Stable Patient Instructions: Urinary Tract Infection in Women (ED) Additional Instructions: Your lab results are reassuring. Take Augmentin twice a day for 10 days. Drink plenty of fluids. Follow up with Dr. Angel for further evaluation. If you have fever, chills, vomiting, worsening pain and weakness, return to the emergency department. Since recent ultrasound showed the presence of gallstones, we would like you to make an appointment to see a general surgeon, you may need to have your gallbladder out. Referrals: Ian Angel Attestation Portions of this note were transcribed by Compa Hollis. I,, personally performed the history,physical exam and medical decision-making;I reviewed and confirmed the accuracy of the information in the transcribed note. Signed by Marques Martinez. 11/20/16 copies to: Ian Angel Donald L MD Nov 20, 2016 20:51 Compa Hollis Nov 20, 2016 21:26
[2016-11-20] MEDS ORDERED: Piperacillin-Tazo 3.375 Gm Inj 3.375 GM in Dextrose 5% Minibag Plus 50 ML IV ONE (20:55)
[2016-11-20 21:24] LABS: BASOPHILS % (AUTO) 0.4 % (0-3); EOSINOPHILS % (AUTO) 5.1 % (0-5); MONOCYTES % (AUTO) 8.2 % (4-12); Mean Corpuscular Hemoglobin 28.4 pg (27.0-35.0); Mean Corpuscular Volume 90.5 fL (81-100); NEUTROPHILS % (AUTO) 51.9 % (40-74); Platelet Count 272 bil/L (150-400)
[2016-11-20] MEDS ORDERED: AMOX-366 PO (22:28)
[2016-11-20 22:59] VITALS: BP 151/75; PULSE 80; RESP 16; O2SAT 97
== END 2016-11-20 23:00 | disposition home or self-care (01) ==
LOC: SED 18:10
DX: N39.0 Urinary tract infection, site not specified (principal); I12.9 Hypertensive chronic kidney disease with stage 1 through stage 4 chronic kidney disease, or unspecified chronic kidney disease; N18.9 Chronic kidney disease, unspecified; I48.92 Unspecified atrial flutter; E78.5 Hyperlipidemia, unspecified; K21.9 Gastro-esophageal reflux disease without esophagitis; D63.1 Anemia in chronic kidney disease; Z90.710 Acquired absence of both cervix and uterus; Z87.891 Personal history of nicotine dependence; Z98.84 Bariatric surgery status; Z79.01 Long term (current) use of anticoagulants; Z79.51 Long term (current) use of inhaled steroids; Z88.5 Allergy status to narcotic agent; Z88.8 Allergy status to other drugs, medicaments and biological substances; Z88.1 Allergy status to other antibiotic agents
CPT/HCPCS: 36415; 80053; 81000; 83605; 85025; 87040; 87077; 87086; 87088; 87186; 96365; 99284; J2543